=== PATIENT | male | born 1965 | race Caucasian/White ===

== ENCOUNTER 2018-05-24 14:50 | Emergency (ER) | payer BC, MEDICAID, OTHER ==
[~2018-05-24] VITALS: Ht 172.7 cm; Wt 109.5 kg
[~2018-05-24 14:50] MED LIST: CLIN300C85 PO; FENO48TA15 PO; INSU100V36 SQ; LANTUS SQ; NO HOME MEDS
[2018-05-24 15:02] VITALS: BP 12/81
[2018-05-24] MEDS ORDERED: BENZ-16 PO (15:50)
[2018-05-24] MEDS ORDERED: AZIT250T PO (15:50)
== END 2018-05-24 16:02 | disposition home or self-care (01) ==
LOC: ER 14:50
DX: J20.9 Acute bronchitis, unspecified (principal); I25.2 Old myocardial infarction; E11.9 Type 2 diabetes mellitus without complications; G89.29 Other chronic pain; Z79.4 Long term (current) use of insulin
CPT/HCPCS: 82948; 99283

== ENCOUNTER 2021-08-10 10:24 | Inpatient (IN) | payer OTHER ==
[~2021-08-10] VITALS: Ht 175.3 cm; Wt 94.9 kg
[~2021-08-10 10:24] MED LIST changes: +CLIN-97 PO; -CLIN300C85 PO
[2021-08-10 11:00] LABS: BASOPHILS % (AUTO) 0.7 % (0-1); EOSINOPHILS % (AUTO) 0 % (0-6); HEMATOCRIT 45.4 % (42.0-52.0); HEMOGLOBIN 15.9 g/dl (14.0-17.9); LYMPHOCYTES # (AUTO) 0.4 X10'3 (1.1-4.8); LYMPHOCYTES % (AUTO) 5.7 % (21-51); MEAN CORPUSCULAR HEMOGLOBIN 29.3 PG (27.0-31.0); MEAN CORPUSCULAR VOLUME 83.7 FL (78-98); MEAN PLATELET VOLUME 7.9 FL (7.4-10.4); MONOCYTES # (AUTO) 0.4 X10'3 (0-0.9); MONOCYTES % (AUTO) 6.6 % (2-12); NEUTROPHILS # (AUTO) 5.7 X10'3 (1.8-7.7); PLATELET COUNT 261 X10'3 (140-440); RED BLOOD COUNT 5.43 X10'6 (4.70-6.10); RED CELL DISTRIBUTION WIDTH 14.1 % (11.5-14.5); WHITE BLOOD COUNT 6.5 X10'3 (4.5-11.0)
[2021-08-10] MEDS ORDERED: normal saline 1000ml 1,000 ML IV ONE (11:05)
[2021-08-10] MEDS ORDERED: acetaminophen 325mg tablet PO ONE (11:05)
[2021-08-10 11:11] LABS: D-DIMER 0.88 MG/L FEU (0-0.50)
[2021-08-10 11:14] LABS: ALANINE AMINOTRANSFERASE 19 U/L (12-78); ALBUMIN 2.6 G/DL (3.4-5.0); ALBUMIN/GLOBULIN RATIO 0.5 (1.1-1.5); ALKALINE PHOSPHATASE 70 IU/L (46-116); ANION GAP 16 (8-16); ASPARTATE AMINO TRANSFERASE 30 U/L (10-37); BILIRUBIN,TOTAL 1.1 MG/DL (0.1-1.0); BLOOD UREA NITROGEN 17 MG/DL (7-18); BUN/CREATININE RATIO 14.7 (5.4-32.0); CALCIUM 8.6 MG/DL (8.5-10.1); CHLORIDE 95 MMOL/L (99-107); CREATININE 1.16 MG/DL (0.60-1.10); GLUCOSE 273 MG/DL (70-104); SODIUM 132 MMOL/L (135-145); TOTAL CARBON DIOXIDE 21.4 MMOL/L (24-32); TOTAL PROTEIN 7.4 G/DL (6.4-8.2); eGFR 65 ML/MIN
--- NOTE | 2021-08-10 11:59 | NUR ---
spoke with hospitalist brian regarding pt staying on 15l nonrebreather vs initiating hi flow nasal cannula or an abg. brian states he will defer to respiratory therapy to decide what is best and will put in orders accordingly
[2021-08-10 12:15] LABS: C-REACTIVE PROTEIN 21.39 MG/DL (0.0-0.5)
[2021-08-10] MEDS ORDERED: HYDROcodone/acetaminophen 10/325mg tab PO PRN (12:20)
[2021-08-10] MEDS ORDERED: PERFLUTREN PROTEIN-A MICROSPHR (Optison) 0.22 MG/ML 3ML VIAL IV ONE (12:20)
[2021-08-10] MEDS ORDERED: magnesium 4gm in 100ml NS 100 ML IV PRN (12:20)
[2021-08-10] MEDS ORDERED: HYDROcodone/acetaminophen 5mg/325mg tablet PO PRN (12:20)
[2021-08-10] MEDS ORDERED: mag hydrox/Alum hydrox/simeth 30ml oral suspension PO PRN (12:20)
[2021-08-10] MEDS ORDERED: potassium CL 10mEq/100ml bag 100 ML IV PRN (12:20)
[2021-08-10] MEDS ORDERED: furosemide 40mg/4ml inj IV ONE (12:20)
[2021-08-10] MEDS ORDERED: dextrose ORAL solution 15 GM/59 ML bottle PO PRN ×2 (12:20)
[2021-08-10] MEDS ORDERED: ondansetron/PF 4mg/2ml inj IV PRN (12:20)
[2021-08-10] MEDS ORDERED: dextrose 50%-water 50ml dispensing syringe IV PRN ×2 (12:20)
[2021-08-10] MEDS ORDERED: magnesium 2GM in 50ml NS 50 ML IV PRN (12:20)
[2021-08-10] MEDS ORDERED: magnesium hydroxide 30ml (MOM) UD suspension PO PRN (12:20)
[2021-08-10] MEDS ORDERED: potassium Cl 20 mEq SR tablet PO PRN ×2 (12:20)
[2021-08-10] MEDS ORDERED: MESSAGE TO PHARMACY PO ONE (12:20)
[2021-08-10] MEDS ORDERED: glucagon, human recombinant 1mg kit SUBCUT PRN (12:20)
[2021-08-10] MEDS ORDERED: dexamethasone inj 6 MG in dextrose 5%-water 100 ML IV ONE (12:30)
[2021-08-10] MEDS ORDERED: ondansetron/PF 4mg/2ml inj IV ONE (12:30)
[2021-08-10] MEDS ORDERED: ALBUTEROL INHALER 1 PUFF/90 MCG INHALER IH PRN (13:15)
[2021-08-10 13:19] LABS: HEMOGLOBIN A1C 10.8 % (4.5-6.2)
[2021-08-10] MEDS: insulin Lispro (HumaLOG) vial - multi-dose SQ SCH ×3 (15:05→22:06)
[2021-08-10 15:30] VITALS: BP 124/84
[2021-08-10 18:00] VITALS: BP 158/95
--- NOTE | 2021-08-10 18:30 | NUR ---
Problems reprioritized. Patient report given, questions answered & plan of care reviewed with Rohit OROURKE.
[2021-08-10] MEDS: furosemide 10 MG/1 ML 10ml inj IV SCH (19:24)
[2021-08-10] MEDS: docusate sod 100mg capsule PO SCH (19:25)
[2021-08-10] MEDS: dexamethasone inj 6 MG in dextrose 5%-water 100 ML IV SCH (19:25)
[2021-08-10] MEDS ORDERED: enoxaparin 40mg/0.4ml syringe SQ SCH (20:00)
[2021-08-10] MEDS: K and/or MAG REPLACEMENT MC SCH (20:00)
[2021-08-10 22:00] VITALS: BP 140/85
[2021-08-10] MEDS: insulin glargine (Lantus) pen - multi-dose SQ SCH (22:09)
[2021-08-11 02:00] VITALS: BP 114/67
[2021-08-11 06:00] VITALS: BP 116/72
--- NOTE | 2021-08-11 06:45 | NUR ---
Patient in room ORTHO 4023. I have received report from REVA RN and had the opportunity to ask questions and assume patient care.
[2021-08-11 07:17] LABS: BASOPHILS % (AUTO) 0 % (0-1); EOSINOPHILS % (AUTO) 0 % (0-6); HEMATOCRIT 43.8 % (42.0-52.0); HEMOGLOBIN 15.4 g/dl (14.0-17.9); LYMPHOCYTES # (AUTO) 0.2 X10'3 (1.1-4.8); LYMPHOCYTES % (AUTO) 3.8 % (21-51); MEAN CORPUSCULAR HEMOGLOBIN 29.2 PG (27.0-31.0); MEAN CORPUSCULAR HGB CONC 35.2 g/dL (33.0-36.5); MEAN CORPUSCULAR VOLUME 82.9 FL (78-98); MEAN PLATELET VOLUME 8.3 FL (7.4-10.4); MONOCYTES # (AUTO) 0.2 X10'3 (0-0.9); MONOCYTES % (AUTO) 4.1 % (2-12); NEUTROPHILS # (AUTO) 4.2 X10'3 (1.8-7.7); NEUTROPHILS % (AUTO) 92.1 % (42-75); PLATELET COUNT 299 X10'3 (140-440); RED BLOOD COUNT 5.28 X10'6 (4.70-6.10); RED CELL DISTRIBUTION WIDTH 13.7 % (11.5-14.5); WHITE BLOOD COUNT 4.6 X10'3 (4.5-11.0)
[2021-08-11 07:18] LABS: D-DIMER 0.64 MG/L FEU (0-0.50)
[2021-08-11] MEDS: dexamethasone inj 6 MG in dextrose 5%-water 100 ML IV SCH ×2 (07:24→20:51)
[2021-08-11] MEDS: aspirin 81mg, enteric-coated 1 TAB TABLET.DR PO SCH (07:25)
[2021-08-11] MEDS: docusate sod 100mg capsule PO SCH ×2 (07:25→20:00)
[2021-08-11] MEDS: furosemide 10 MG/1 ML 10ml inj IV SCH (07:26)
[2021-08-11 07:49] LABS: ALANINE AMINOTRANSFERASE 24 U/L (12-78); ALBUMIN 2.5 G/DL (3.4-5.0); ALBUMIN/GLOBULIN RATIO 0.6 (1.1-1.5); ALKALINE PHOSPHATASE 72 IU/L (46-116); ANION GAP 13 (8-16); ASPARTATE AMINO TRANSFERASE 26 U/L (10-37); BILIRUBIN,TOTAL 0.8 MG/DL (0.1-1.0); BLOOD UREA NITROGEN 26 MG/DL (7-18); BUN/CREATININE RATIO 27.7 (5.4-32.0); C-REACTIVE PROTEIN 16.27 MG/DL (0.0-0.5); CALCIUM 8.3 MG/DL (8.5-10.1); CHLORIDE 99 MMOL/L (99-107); CHOL/HDL RATIO 7.3 (0.00-4.99); CHOLESTEROL 257 MG/DL (0-200); CREATININE 0.94 MG/DL (0.60-1.10); GLUCOSE 340 MG/DL (70-104); HDL CHOLESTEROL 35 MG/DL (35-60); LDL CHOLESTEROL 162 MG/DL (50-100); MAGNESIUM 2.2 MG/DL (1.5-2.4); POTASSIUM 4.2 MMOL/L (3.5-5.1); SODIUM 135 MMOL/L (135-145); TOTAL CARBON DIOXIDE 22.8 MMOL/L (24-32); TOTAL PROTEIN 6.6 G/DL (6.4-8.2); TRIGLYCERIDES 204 MG/DL (20-135); eGFR 83 ML/MIN
[2021-08-11] MEDS ORDERED: clopidogrel 75mg tablet PO SCH (08:00)
[2021-08-11] MEDS: K and/or MAG REPLACEMENT MC SCH ×2 (08:00→20:00)
[2021-08-11] MEDS: insulin Lispro (HumaLOG) vial - multi-dose SQ SCH ×3 (09:30→18:33)
[2021-08-11 11:00] VITALS: BP 111/72
--- NOTE | 2021-08-11 14:15 | NUR ---
DM Consult: Pt admit DX COVID-19 hx insulin-dependent DM A1C 10.8% stopped taking all medications for several months [employer] per EMR. Pt currently on 13L HFNC per EMR. Would benefit from DM education this admit once more appropriate prior to discharge. Addendum: 08/11/21 at [address] Amended: Links added.
[2021-08-11 15:00] VITALS: BP 111/70
[2021-08-11 18:00] VITALS: BP 103/64
--- NOTE | 2021-08-11 18:31 | NUR ---
Problems reprioritized. Patient report given, questions answered & plan of care reviewed with Patrica OROURKE.
[2021-08-11] MEDS: loperamide 2mg capsule PO PRN (18:35)
[2021-08-11] MEDS: insulin glargine (Lantus) pen - multi-dose SQ SCH (20:51)
[2021-08-11] MEDS: enoxaparin 40mg/0.4ml syringe SQ SCH (20:52)
[2021-08-11 22:00] VITALS: BP 118/76
[2021-08-12 02:00] VITALS: BP 113/70
--- NOTE | 2021-08-12 06:30 | NUR ---
Patient in room ORTHO 4023. I have received report from Patrica OROURKE and had the opportunity to ask questions and assume patient care.
[2021-08-12 06:31] VITALS: BP 105/63
[2021-08-12] MEDS: dexamethasone inj 6 MG in dextrose 5%-water 100 ML IV SCH ×2 (07:23→20:54)
[2021-08-12] MEDS: acetaminophen 325mg tablet PO PRN ×2 (07:42→20:54)
[2021-08-12] MEDS: aspirin 81mg, enteric-coated 1 TAB TABLET.DR PO SCH (07:42)
[2021-08-12 07:43] LABS: BASOPHILS % (AUTO) 0.3 % (0-1); EOSINOPHILS % (AUTO) 0 % (0-6); HEMATOCRIT 44.6 % (42.0-52.0); HEMOGLOBIN 15.5 g/dl (14.0-17.9); LYMPHOCYTES # (AUTO) 0.2 X10'3 (1.1-4.8); LYMPHOCYTES % (AUTO) 3.1 % (21-51); MEAN CORPUSCULAR HEMOGLOBIN 28.8 PG (27.0-31.0); MEAN CORPUSCULAR HGB CONC 34.8 g/dL (33.0-36.5); MEAN CORPUSCULAR VOLUME 82.9 FL (78-98); MEAN PLATELET VOLUME 8.2 FL (7.4-10.4); MONOCYTES # (AUTO) 0.3 X10'3 (0-0.9); MONOCYTES % (AUTO) 5.3 % (2-12); NEUTROPHILS % (AUTO) 91.3 % (42-75); PLATELET COUNT 369 X10'3 (140-440); RED BLOOD COUNT 5.37 X10'6 (4.70-6.10); RED CELL DISTRIBUTION WIDTH 13.9 % (11.5-14.5); WHITE BLOOD COUNT 6.6 X10'3 (4.5-11.0)
[2021-08-12] MEDS: enoxaparin 40mg/0.4ml syringe SQ SCH ×2 (07:43→20:54)
[2021-08-12 07:59] LABS: ALANINE AMINOTRANSFERASE 23 U/L (12-78); ALBUMIN 2.5 G/DL (3.4-5.0); ALBUMIN/GLOBULIN RATIO 0.6 (1.1-1.5); ALKALINE PHOSPHATASE 67 IU/L (46-116); ANION GAP 12 (8-16); ASPARTATE AMINO TRANSFERASE 23 U/L (10-37); BILIRUBIN,TOTAL 0.9 MG/DL (0.1-1.0); BLOOD UREA NITROGEN 30 MG/DL (7-18); BUN/CREATININE RATIO 30.9 (5.4-32.0); CALCIUM 8.5 MG/DL (8.5-10.1); CHLORIDE 99 MMOL/L (99-107); CREATININE 0.97 MG/DL (0.60-1.10); GLUCOSE 281 MG/DL (70-104); MAGNESIUM 2.4 MG/DL (1.5-2.4); POTASSIUM 4.2 MMOL/L (3.5-5.1); SODIUM 136 MMOL/L (135-145); TOTAL CARBON DIOXIDE 24.6 MMOL/L (24-32); TOTAL PROTEIN 6.5 G/DL (6.4-8.2); eGFR 80 ML/MIN
[2021-08-12] MEDS ORDERED: furosemide 10 MG/1 ML 10ml inj IV SCH (08:00)
[2021-08-12] MEDS: furosemide 20 MG/2 ML vial IV SCH (08:00)
[2021-08-12] MEDS: K and/or MAG REPLACEMENT MC SCH ×2 (08:00→20:00)
[2021-08-12] MEDS: docusate sod 100mg capsule PO SCH ×2 (08:00→20:00)
[2021-08-12] MEDS: insulin Lispro (HumaLOG) vial - multi-dose SQ SCH ×3 (09:07→18:36)
[2021-08-12] MEDS: loperamide 2mg capsule PO PRN (09:13)
[2021-08-12 09:16] LABS: D-DIMER 1.36 MG/L FEU (0-0.50)
--- NOTE | 2021-08-12 09:23 | NUR ---
Replaced nonrebreather.
[2021-08-12] MEDS ORDERED: CefTRIAXone 2gm/D5W 50ml BAG 50 ML IV SCH (09:40)
--- NOTE | 2021-08-12 10:16 | NUR ---
Working with PT attempting to prone.
[2021-08-12 10:32] VITALS: BP 98/62
--- NOTE | 2021-08-12 10:55 | NUR ---
Patient proned x15 minutes, helped into right lateral position.
--- NOTE | 2021-08-12 12:50 | NUR ---
Patient ripped off nasal cannula and nonrebreather and was in the 60s sp02. Telemetry called to let me know, upon walking into room found patient agitated and would not put oxygen back on. States he would rather go home and than here alone as his is getting discharged and is in the hospital bed next to him. is visably distraught. Dr. Hernandez came to bedside to examine patient and gave risks of going home and strongly advised that he stay. Xanax orders were given however patient refuses at this time. He is being very negative in his thinking and quickly believes that he is going to either way regardless of medical intervention. Reassurance given to him, patient is willing to stay at this point. Sitting on side of bed eating lunch. He and his are in disagreement with each other which i believe is causing a lot of these problems.
--- NOTE | 2021-08-12 13:52 | NUR ---
Patient wearing 02 and is willing to be compliant and present in care at this time.
[2021-08-12] MEDS ORDERED: TOCILIZUMAB 80MG/4 ML INJ. 800 MG in normal saline 100ml IV soln 60 ML IV ONE (14:00)
[2021-08-12 18:00] VITALS: BP 109/70
--- NOTE | 2021-08-12 18:18 | NUR ---
Report given to Patrica OROURKE
[2021-08-12] MEDS: insulin glargine (Lantus) pen - multi-dose SQ SCH (20:53)
[2021-08-12 22:00] VITALS: BP 93/55
[2021-08-13 02:00] VITALS: BP 100/69
--- NOTE | 2021-08-13 06:20 | NUR ---
Patient in room ORTHO 4023b. I have received report from Patrica OROURKE and had the opportunity to ask questions and assume patient care.
[2021-08-13 06:57] VITALS: BP 121/72
[2021-08-13 06:58] LABS: D-DIMER 1.59 MG/L FEU (0-0.50)
[2021-08-13 07:03] LABS: BASOPHILS % (AUTO) 0.2 % (0-1); EOSINOPHILS % (AUTO) 0 % (0-6); HEMATOCRIT 44.1 % (42.0-52.0); HEMOGLOBIN 15.4 g/dl (14.0-17.9); LYMPHOCYTES # (AUTO) 0.1 X10'3 (1.1-4.8); LYMPHOCYTES % (AUTO) 3.5 % (21-51); MEAN CORPUSCULAR VOLUME 82.9 FL (78-98); MEAN PLATELET VOLUME 7.8 FL (7.4-10.4); MONOCYTES # (AUTO) 0.3 X10'3 (0-0.9); MONOCYTES % (AUTO) 7.9 % (2-12); NEUTROPHILS # (AUTO) 3.2 X10'3 (1.8-7.7); NEUTROPHILS % (AUTO) 88.4 % (42-75); PLATELET COUNT 343 X10'3 (140-440); RED BLOOD COUNT 5.32 X10'6 (4.70-6.10); RED CELL DISTRIBUTION WIDTH 13.7 % (11.5-14.5); WHITE BLOOD COUNT 3.6 X10'3 (4.5-11.0)
[2021-08-13 07:15] LABS: ALANINE AMINOTRANSFERASE 19 U/L (12-78); ALBUMIN 2.5 G/DL (3.4-5.0); ALBUMIN/GLOBULIN RATIO 0.7 (1.1-1.5); ALKALINE PHOSPHATASE 65 IU/L (46-116); ANION GAP 10 (8-16); ASPARTATE AMINO TRANSFERASE 19 U/L (10-37); BILIRUBIN,TOTAL 0.7 MG/DL (0.1-1.0); BLOOD UREA NITROGEN 31 MG/DL (7-18); BUN/CREATININE RATIO 34.1 (5.4-32.0); C-REACTIVE PROTEIN 2.45 MG/DL (0.0-0.5); CALCIUM 8.4 MG/DL (8.5-10.1); CHLORIDE 101 MMOL/L (99-107); CREATININE 0.91 MG/DL (0.60-1.10); GLUCOSE 241 MG/DL (70-104); MAGNESIUM 2.4 MG/DL (1.5-2.4); POTASSIUM 4.4 MMOL/L (3.5-5.1); SODIUM 137 MMOL/L (135-145); TOTAL CARBON DIOXIDE 26.3 MMOL/L (24-32); TOTAL PROTEIN 6.1 G/DL (6.4-8.2); eGFR 86 ML/MIN
[2021-08-13] MEDS: K and/or MAG REPLACEMENT MC SCH ×2 (08:00→19:30)
[2021-08-13] MEDS: aspirin 81mg, enteric-coated 1 TAB TABLET.DR PO SCH (10:11)
[2021-08-13] MEDS: furosemide 20 MG/2 ML vial IV SCH (10:12)
[2021-08-13] MEDS: enoxaparin 40mg/0.4ml syringe SQ SCH ×2 (10:12→19:30)
[2021-08-13] MEDS: docusate sod 100mg capsule PO SCH ×2 (10:12→19:31)
[2021-08-13] MEDS: dexamethasone inj 6 MG in dextrose 5%-water 100 ML IV SCH ×2 (10:22→19:30)
[2021-08-13] MEDS: insulin Lispro (HumaLOG) vial - multi-dose SQ SCH ×2 (13:43→19:16)
--- NOTE | 2021-08-13 17:51 | NUR ---
PATIENT LAID ON BOTH SIDES AND SAT IN THE TRIPOD POSITION FOR A FEW HOURS TO RELIEVE PRESSURE SINCE HE IS UNABLE TO PRONE.
--- NOTE | 2021-08-13 17:54 | NUR ---
PATIENT STATED HE DID THIS FREQUENTLY THROUGHOUT THE DAY. Addendum: 08/13/21 at 3754 by Jen Casper RN Amended: Links added.
[2021-08-13 18:00] VITALS: BP 106/72
--- NOTE | 2021-08-13 18:30 | NUR ---
Problems reprioritized. Patient report given, questions answered & plan of care reviewed with MARVA OROURKE.
[2021-08-13] MEDS: acetaminophen 325mg tablet PO PRN (19:31)
[2021-08-13 20:17] LABS: ABG BASE EXCESS 3.7 mmol/L (-2.0-2.0); ABG HCO3 27.2 mmol/L (22.0-26.0); ABG OXYGEN SATURATION 88.4 % (94-97); ABG PCO2 (T) 36.7 mmHg (35.0-48.0); ABG PO2 (T) 50.4 mmHg (75.0-100.0); ALLEN'S TEST POSITIVE; FCOHb 0.2 % (0.0-3.9); FMetHb 0.2 % (0.0-1.5); PATIENT TEMPERATURE 36.5
--- NOTE | 2021-08-13 21:10 | NUR ---
ABG results called to Dr. Ndiaye. Critical PaO2 50.4. Dr. Ndiaye ordered for patient to be placed on CPAP but patient refused to wear one. Educated on importance of wearing one.
[2021-08-13] MEDS: insulin glargine (Lantus) pen - multi-dose SQ SCH (21:17)
[2021-08-13 22:00] VITALS: BP 105/71
[2021-08-14 02:00] VITALS: BP 108/62
[2021-08-14 06:00] VITALS: BP 120/67
--- NOTE | 2021-08-14 06:42 | NUR ---
Problems reprioritized. Patient report given, questions answered & plan of care reviewed with Mita OROURKE.
--- NOTE | 2021-08-14 06:42 | NUR ---
Patient in room ORTHO 4023. I have received report from Bhavna OROURKE and had the opportunity to ask questions and assume patient care.
[2021-08-14 07:58] LABS: BASOPHILS % (AUTO) 0.4 % (0-1); EOSINOPHILS % (AUTO) 0.1 % (0-6); HEMATOCRIT 44.3 % (42.0-52.0); HEMOGLOBIN 15.5 g/dl (14.0-17.9); LYMPHOCYTES # (AUTO) 0.2 X10'3 (1.1-4.8); LYMPHOCYTES % (AUTO) 6.9 % (21-51); MEAN CORPUSCULAR HGB CONC 35.1 g/dL (33.0-36.5); MEAN CORPUSCULAR VOLUME 82.8 FL (78-98); MEAN PLATELET VOLUME 7.7 FL (7.4-10.4); MONOCYTES # (AUTO) 0.2 X10'3 (0-0.9); MONOCYTES % (AUTO) 8.4 % (2-12); NEUTROPHILS # (AUTO) 2.1 X10'3 (1.8-7.7); NEUTROPHILS % (AUTO) 84.2 % (42-75); PLATELET COUNT 364 X10'3 (140-440); RED BLOOD COUNT 5.34 X10'6 (4.70-6.10); RED CELL DISTRIBUTION WIDTH 13.6 % (11.5-14.5); WHITE BLOOD COUNT 2.5 X10'3 (4.5-11.0)
[2021-08-14] MEDS: docusate sod 100mg capsule PO SCH ×3 (08:00→19:13)
[2021-08-14] MEDS: K and/or MAG REPLACEMENT MC SCH ×2 (08:00→19:13)
[2021-08-14] MEDS: furosemide 20 MG/2 ML vial IV SCH (08:06)
[2021-08-14] MEDS: dexamethasone inj 6 MG in dextrose 5%-water 100 ML IV SCH ×2 (08:06→19:12)
[2021-08-14] MEDS: enoxaparin 40mg/0.4ml syringe SQ SCH ×2 (08:06→19:13)
[2021-08-14] MEDS: aspirin 81mg, enteric-coated 1 TAB TABLET.DR PO SCH (08:06)
--- NOTE | 2021-08-14 09:08 | NUR ---
Initial: Pt admitted w/ acute respiratory failure secondary to Covid per EMR, currently on 15L HF oxygen, refusing BiPAP per documentation. Pt noted to be depressed and agitated at times. Currently on Heart healthy/Carb controlled diet w/ moderate PO intake, avg 56% x 10 meals which meets approximately 51% of est energy needs and 56% of est protein needs. Pt can benefit from Ensure Enlive TID to assist w/ meeting nutrient needs. LBM 08/11 receiving routine colace. Will continue to monitor. Recs: 1. Continue CCHO diet as tolerated; removal of heart healthy if MD agreeable 2. Ensure Enlive TID; pending MD verification 3. Bowel care per rx 4. Scaled wt this admit, subsequent weekly wt 5. DM education by NELY once pt more appropriate this admit Addendum: 08/14/21 at [address] Amended: Links added.
[2021-08-14] MEDS: acetaminophen 325mg tablet PO PRN ×2 (09:36→19:12)
[2021-08-14 09:40] LABS: D-DIMER 1.81 MG/L FEU (0-0.50)
[2021-08-14 09:42] LABS: TOTAL CELLS COUNTED 100
[2021-08-14 09:43] LABS: PLATELET ESTIMATE NORMAL
[2021-08-14] MEDS: insulin Lispro (HumaLOG) vial - multi-dose SQ SCH ×3 (09:54→18:45)
[2021-08-14 10:12] VITALS: BP 109/70
[2021-08-14 10:27] LABS: ALANINE AMINOTRANSFERASE 20 U/L (12-78); ALBUMIN 2.7 G/DL (3.4-5.0); ALBUMIN/GLOBULIN RATIO 0.8 (1.1-1.5); ALKALINE PHOSPHATASE 64 IU/L (46-116); ANION GAP 11 (8-16); ASPARTATE AMINO TRANSFERASE 21 U/L (10-37); BILIRUBIN,TOTAL 0.8 MG/DL (0.1-1.0); BLOOD UREA NITROGEN 24 MG/DL (7-18); BUN/CREATININE RATIO 27.6 (5.4-32.0); C-REACTIVE PROTEIN 1.16 MG/DL (0.0-0.5); CALCIUM 8.4 MG/DL (8.5-10.1); CHLORIDE 99 MMOL/L (99-107); CREATININE 0.87 MG/DL (0.60-1.10); GLUCOSE 176 MG/DL (70-104); MAGNESIUM 2.5 MG/DL (1.5-2.4); SODIUM 137 MMOL/L (135-145); TOTAL CARBON DIOXIDE 27.5 MMOL/L (24-32); eGFR 90 ML/MIN
[2021-08-14 12:47] LABS: POTASSIUM 4.8 MMOL/L (3.5-5.1)
[2021-08-14] MEDS: lactose-reduced food (Ensure Enlive) - 237ml bottle PO SCH ×2 (13:00→18:00)
[2021-08-14 14:00] VITALS: BP 93/55
--- NOTE | 2021-08-14 15:19 | NUR ---
DM Consult: Pt would benefit from DM ed once more appropriate; see prior RD note. Addendum: 08/14/21 at [address] Amended: Links added.
[2021-08-14 18:00] VITALS: BP 100/70
--- NOTE | 2021-08-14 18:24 | NUR ---
Patient in room ORTHO 4023. I have received report from Mita OROURKE and had the opportunity to ask questions and assume patient care.
[2021-08-14] MEDS: insulin glargine (Lantus) pen - multi-dose SQ SCH (21:13)
[2021-08-14 22:00] VITALS: BP 99/66
[2021-08-15] VITALS (7 sets, daily range): BP systolic 87–110; BP diastolic 51–70
[2021-08-15] MEDS: acetaminophen 325mg tablet PO PRN ×2 (04:21→19:23)
--- NOTE | 2021-08-15 06:20 | NUR ---
Problems reprioritized. Patient report given, questions answered & plan of care reviewed with Mita OROURKE.
--- NOTE | 2021-08-15 06:36 | NUR ---
Patient in room ORTHO 4023. I have received report from Bhavna OROURKE and had the opportunity to ask questions and assume patient care.
[2021-08-15] MEDS: dexamethasone inj 6 MG in dextrose 5%-water 100 ML IV SCH ×2 (07:41→19:23)
[2021-08-15] MEDS: lactose-reduced food (Ensure Enlive) - 237ml bottle PO SCH ×3 (07:42→17:34)
[2021-08-15] MEDS: enoxaparin 40mg/0.4ml syringe SQ SCH ×2 (07:42→19:24)
[2021-08-15] MEDS: aspirin 81mg, enteric-coated 1 TAB TABLET.DR PO SCH (07:42)
[2021-08-15] MEDS: docusate sod 100mg capsule PO SCH ×2 (07:42→19:24)
[2021-08-15] MEDS: furosemide 20 MG/2 ML vial IV SCH (07:42)
[2021-08-15] MEDS: K and/or MAG REPLACEMENT MC SCH ×2 (07:43→19:17)
[2021-08-15 08:53] LABS: BASOPHILS % (AUTO) 0 % (0-1); EOSINOPHILS % (AUTO) 0.3 % (0-6); HEMATOCRIT 44.7 % (42.0-52.0); HEMOGLOBIN 15.4 g/dl (14.0-17.9); LYMPHOCYTES # (AUTO) 0.2 X10'3 (1.1-4.8); LYMPHOCYTES % (AUTO) 7.3 % (21-51); MEAN CORPUSCULAR HEMOGLOBIN 28.8 PG (27.0-31.0); MEAN CORPUSCULAR HGB CONC 34.5 g/dL (33.0-36.5); MEAN CORPUSCULAR VOLUME 83.4 FL (78-98); MEAN PLATELET VOLUME 7.6 FL (7.4-10.4); MONOCYTES # (AUTO) 0.1 X10'3 (0-0.9); MONOCYTES % (AUTO) 6.8 % (2-12); NEUTROPHILS # (AUTO) 1.8 X10'3 (1.8-7.7); NEUTROPHILS % (AUTO) 85.6 % (42-75); PLATELET COUNT 365 X10'3 (140-440); RED BLOOD COUNT 5.36 X10'6 (4.70-6.10); RED CELL DISTRIBUTION WIDTH 13.7 % (11.5-14.5); WHITE BLOOD COUNT 2.1 X10'3 (4.5-11.0)
[2021-08-15 09:06] LABS: D-DIMER 2.01 MG/L FEU (0-0.50)
[2021-08-15] MEDS: insulin Lispro (HumaLOG) vial - multi-dose SQ SCH ×3 (09:15→18:43)
[2021-08-15 10:36] LABS: TOTAL CELLS COUNTED 100
[2021-08-15 10:37] LABS: PLATELET ESTIMATE NORMAL
[2021-08-15 10:48] LABS: ALANINE AMINOTRANSFERASE 22 U/L (12-78); ALBUMIN 2.7 G/DL (3.4-5.0); ALBUMIN/GLOBULIN RATIO 0.9 (1.1-1.5); ALKALINE PHOSPHATASE 57 IU/L (46-116); ANION GAP 12 (8-16); ASPARTATE AMINO TRANSFERASE 28 U/L (10-37); BILIRUBIN,TOTAL 0.9 MG/DL (0.1-1.0); BLOOD UREA NITROGEN 23 MG/DL (7-18); BUN/CREATININE RATIO 25.6 (5.4-32.0); C-REACTIVE PROTEIN 0.53 MG/DL (0.0-0.5); CALCIUM 8.2 MG/DL (8.5-10.1); CHLORIDE 97 MMOL/L (99-107); GLUCOSE 238 MG/DL (70-104); MAGNESIUM 2.3 MG/DL (1.5-2.4); POTASSIUM 4.3 MMOL/L (3.5-5.1); SODIUM 134 MMOL/L (135-145); TOTAL CARBON DIOXIDE 25.2 MMOL/L (24-32); TOTAL PROTEIN 5.7 G/DL (6.4-8.2); eGFR 87 ML/MIN
--- NOTE | 2021-08-15 18:10 | NUR ---
Patient in room ORTHO 4023. I have received report from SHARAD Fan and had the opportunity to ask questions and assume patient care.
--- NOTE | 2021-08-15 18:29 | NUR ---
Problems reprioritized. Patient report given, questions answered & plan of care reviewed with Pao OROURKE.
[2021-08-15] MEDS: insulin glargine (Lantus) pen - multi-dose SQ SCH (20:54)
[2021-08-16 02:00] VITALS: BP 106/56
[2021-08-16] MEDS: acetaminophen 325mg tablet PO PRN ×2 (04:31→19:50)
[2021-08-16 05:00] VITALS: BP 100/59
[2021-08-16 06:00] LABS: C-REACTIVE PROTEIN 0.26 MG/DL (0.0-0.5)
--- NOTE | 2021-08-16 06:39 | NUR ---
Problems reprioritized. Patient report given, questions answered & plan of care reviewed with SHARAD Wang.
[2021-08-16] MEDS: K and/or MAG REPLACEMENT MC SCH ×2 (08:00→18:58)
[2021-08-16] MEDS: dexamethasone inj 6 MG in dextrose 5%-water 100 ML IV SCH ×2 (08:44→19:50)
[2021-08-16] MEDS: docusate sod 100mg capsule PO SCH ×2 (08:45→19:50)
[2021-08-16] MEDS: furosemide 20 MG/2 ML vial IV SCH (08:45)
[2021-08-16] MEDS: aspirin 81mg, enteric-coated 1 TAB TABLET.DR PO SCH (08:46)
[2021-08-16] MEDS: enoxaparin 40mg/0.4ml syringe SQ SCH ×2 (08:46→19:50)
[2021-08-16] MEDS: lactose-reduced food (Ensure Enlive) - 237ml bottle PO SCH ×3 (08:48→18:19)
[2021-08-16 08:51] LABS: HIV ANTIBODY 1&2 RAPID NON-REACTIVE (Neg)
[2021-08-16] MEDS: insulin Lispro (HumaLOG) vial - multi-dose SQ SCH ×3 (09:20→18:32)
[2021-08-16 09:33] LABS: ALANINE AMINOTRANSFERASE 25 U/L (12-78); ALBUMIN 2.7 G/DL (3.4-5.0); ALBUMIN/GLOBULIN RATIO 0.9 (1.1-1.5); ALKALINE PHOSPHATASE 56 IU/L (46-116); ANION GAP 11 (8-16); ASPARTATE AMINO TRANSFERASE 23 U/L (10-37); BILIRUBIN,TOTAL 0.8 MG/DL (0.1-1.0); BLOOD UREA NITROGEN 25 MG/DL (7-18); BUN/CREATININE RATIO 30.9 (5.4-32.0); CALCIUM 8.7 MG/DL (8.5-10.1); CHLORIDE 100 MMOL/L (99-107); CREATININE 0.81 MG/DL (0.60-1.10); GLUCOSE 144 MG/DL (70-104); POTASSIUM 4.6 MMOL/L (3.5-5.1); SODIUM 137 MMOL/L (135-145); TOTAL CARBON DIOXIDE 25.8 MMOL/L (24-32); TOTAL PROTEIN 5.7 G/DL (6.4-8.2); eGFR > 90 ML/MIN
[2021-08-16 09:46] LABS: BASOPHILS % (AUTO) 0.2 % (0-1); EOSINOPHILS % (AUTO) 0.3 % (0-6); HEMATOCRIT 47.6 % (42.0-52.0); HEMOGLOBIN 16.6 g/dl (14.0-17.9); LYMPHOCYTES # (AUTO) 0.2 X10'3 (1.1-4.8); LYMPHOCYTES % (AUTO) 5.4 % (21-51); MEAN CORPUSCULAR HEMOGLOBIN 28.9 PG (27.0-31.0); MEAN CORPUSCULAR HGB CONC 34.9 g/dL (33.0-36.5); MEAN CORPUSCULAR VOLUME 82.9 FL (78-98); MEAN PLATELET VOLUME 7.4 FL (7.4-10.4); MONOCYTES # (AUTO) 0.3 X10'3 (0-0.9); MONOCYTES % (AUTO) 7.1 % (2-12); NEUTROPHILS # (AUTO) 3.6 X10'3 (1.8-7.7); PLATELET COUNT 444 X10'3 (140-440); RED BLOOD COUNT 5.74 X10'6 (4.70-6.10); RED CELL DISTRIBUTION WIDTH 13.6 % (11.5-14.5); WHITE BLOOD COUNT 4.1 X10'3 (4.5-11.0)
[2021-08-16 10:00] VITALS: BP 113/75
--- NOTE | 2021-08-16 11:33 | NUR ---
Paged Dr. Powell PAGER ID: [phone] MESSAGE: [id number] Rikki Bolivar Pt would like something for anxiety. Ativan? Thanks. SHARAD Wang Ortho/Neuro ext [phone]
[2021-08-16 14:00] VITALS: BP 98/56
[2021-08-16 18:00] VITALS: BP 94/49
--- NOTE | 2021-08-16 18:15 | NUR ---
Patient in room ORTHO 4023. I have received report from SHARAD Wang and had the opportunity to ask questions and assume patient care.
--- NOTE | 2021-08-16 18:16 | NUR ---
Problems reprioritized. Patient report given, questions answered & plan of care reviewed with SHARAD Cedeno.
[2021-08-16] MEDS: insulin glargine (Lantus) pen - multi-dose SQ SCH (20:59)
[2021-08-16 22:00] VITALS: BP 98/54
[2021-08-17 02:00] VITALS: BP 101/53
[2021-08-17 05:30] VITALS: BP 116/62
--- NOTE | 2021-08-17 06:40 | NUR ---
Patient in room ORTHO 4023. I have received report from SHARAD Cedeno and had the opportunity to ask questions and assume patient care.
--- NOTE | 2021-08-17 06:48 | NUR ---
Problems reprioritized. Patient report given, questions answered & plan of care reviewed with SHARAD Castillo.
[2021-08-17 07:44] LABS: D-DIMER 0.93 MG/L FEU (0-0.50)
[2021-08-17] MEDS: K and/or MAG REPLACEMENT MC SCH ×2 (08:00→20:00)
[2021-08-17] MEDS: docusate sod 100mg capsule PO SCH ×2 (08:00→19:55)
[2021-08-17] MEDS: lactose-reduced food (Ensure Enlive) - 237ml bottle PO SCH ×4 (08:48→18:00)
--- NOTE | 2021-08-17 09:06 | NUR ---
Reassessment: Pt PO has improved some on Heart healthy/Carb controlled diet w/ avg intake 85% x 9 meals in addition to 62% x 6 ONS which meets approximately 100% of est protein and energy needs. IF PO intake consistently greater than 85% of meals may consider d/c ONS and adding double protein to meals. Pt continues on 15L oxygen per documentation LBM 08/11 receiving routine colace, recommend additional bowel care given 6 days constipation. Will continue to monitor. Recs: 1. Continue CCHO diet as tolerated; removal of heart healthy if MD agreeable 2. Ensure Enlive TID 3. Bowel care per rx 4. Scaled wt this admit, subsequent weekly wt 5. DM education by RD once pt more appropriate this admit Addendum: 08/17/21 at [address] Amended: Links added.
[2021-08-17] MEDS: dexamethasone inj 6 MG in dextrose 5%-water 100 ML IV SCH ×2 (09:29→19:54)
[2021-08-17] MEDS: aspirin 81mg, enteric-coated 1 TAB TABLET.DR PO SCH (09:30)
[2021-08-17] MEDS: furosemide 20 MG/2 ML vial IV SCH (09:30)
[2021-08-17] MEDS: insulin Lispro (HumaLOG) vial - multi-dose SQ SCH ×3 (09:39→19:00)
[2021-08-17] MEDS: enoxaparin 40mg/0.4ml syringe SQ SCH ×2 (09:42→19:55)
[2021-08-17 10:00] VITALS: BP 103/70
--- NOTE | 2021-08-17 12:00 | NUR ---
Pt takes off 02 @ times. Tele monitor staff person has had to call several times to inform us of Sa02 less than 85%. Pt states, "He is okay & will put the 02 back on when he is ready to." Inst pt on the importance of keeping 02 on @ all times & the potential negative consequences of not wearing continuous 02/decreased Sa02. Pt verbalizes understanding.
[2021-08-17 14:00] VITALS: BP 96/57
[2021-08-17 18:00] VITALS: BP 97/70
--- NOTE | 2021-08-17 18:55 | NUR ---
Problems reprioritized. Patient report given, questions answered & plan of care reviewed with SHARAD Barksdale.
--- NOTE | 2021-08-17 19:11 | NUR ---
FOUND PT WITHOUT MASK O2 85% WITH NC. I ASKED PT TO PUT MASK BACK ON. HE KEPT SAYING IM OKAY. DON'T WORRY ABOUT ME. RESPIRATORY THERAPIST AND DOCTOR SAID ITS OK LONG HE HAS EITHER NC OR MASK, NOT BOTH. WE WERE TALKING O2 DROPPED 80%. I ASKED MULTIPLE TIMES TO PUT MASK WELL BUT PT KEPT SAYING IM OKAY. I PROMISE IM OKAY. AND REFUSED TO PUT MASK BACK ON.
[2021-08-17] MEDS: acetaminophen 325mg tablet PO PRN (19:55)
[2021-08-17] MEDS: insulin glargine (Lantus) pen - multi-dose SQ SCH (21:00)
[2021-08-17 22:00] VITALS: BP 103/61
--- NOTE | 2021-08-17 22:04 | NUR ---
PT REFUSED INSULIN AT DINNER TIME. BS 110. PT WAS NERVOUS ABOUT BS DROPPING WHICH HAPPENED LAST NIGHT. AGREED TO CHECK BS AT BEDTIME. HS BS WAS 138. PT REFUSED INSULIN AGAIN. PT STATES "I DON'T NEED IT" EDUCATED ABOUT RAPID ACTING AND LONG ACTING INSULIN. PT SAID "I KNOW I KNOW. I DON'T NEED IT" EDUCATED ABOUT HOW UNCONTROLLED BS AFFECT RECOVERY.
--- NOTE | 2021-08-18 06:33 | NUR ---
Problems reprioritized. Patient report given, questions answered & plan of care reviewed with SHARAD VEGA.
[2021-08-18 07:00] VITALS: BP 103/78
--- NOTE | 2021-08-18 07:01 | NUR ---
Patient in room ORTHO 4023. I have received report from SHARAD CELESTE and had the opportunity to ask questions and assume patient care.
[2021-08-18 07:11] LABS: D-DIMER 0.95 MG/L FEU (0-0.50)
[2021-08-18 07:14] LABS: HEMOGLOBIN 15.9 g/dl (14.0-17.9); LYMPHOCYTES # (AUTO) 0.2 X10'3 (1.1-4.8); MONOCYTES # (AUTO) 0.2 X10'3 (0-0.9)
[2021-08-18 07:16] LABS: BASOPHILS % (AUTO) 0.3 % (0-1); EOSINOPHILS % (AUTO) 0.4 % (0-6); LYMPHOCYTES % (AUTO) 4.9 % (21-51); MEAN CORPUSCULAR HEMOGLOBIN 28.8 PG (27.0-31.0); MEAN CORPUSCULAR HGB CONC 34.5 g/dL (33.0-36.5); MEAN CORPUSCULAR VOLUME 83.5 FL (78-98); MEAN PLATELET VOLUME 7.4 FL (7.4-10.4); MONOCYTES % (AUTO) 3.8 % (2-12); NEUTROPHILS # (AUTO) 3.8 X10'3 (1.8-7.7); NEUTROPHILS % (AUTO) 90.6 % (42-75); PLATELET COUNT 355 X10'3 (140-440); RED BLOOD COUNT 5.51 X10'6 (4.70-6.10); RED CELL DISTRIBUTION WIDTH 14.2 % (11.5-14.5); WHITE BLOOD COUNT 4.2 X10'3 (4.5-11.0)
[2021-08-18] MEDS: furosemide 20 MG/2 ML vial IV SCH (07:51)
[2021-08-18] MEDS: docusate sod 100mg capsule PO SCH ×3 (07:51→19:20)
[2021-08-18] MEDS: dexamethasone inj 6 MG in dextrose 5%-water 100 ML IV SCH (07:52)
[2021-08-18] MEDS: aspirin 81mg, enteric-coated 1 TAB TABLET.DR PO SCH (07:52)
[2021-08-18] MEDS: acetaminophen 325mg tablet PO PRN ×2 (07:52→20:54)
[2021-08-18] MEDS: enoxaparin 40mg/0.4ml syringe SQ SCH ×2 (07:53→19:03)
[2021-08-18 07:58] LABS: ALBUMIN 2.7 G/DL (3.4-5.0); ANION GAP 9 (8-16); BLOOD UREA NITROGEN 24 MG/DL (7-18); BUN/CREATININE RATIO 35.3 (5.4-32.0); C-REACTIVE PROTEIN 0.08 MG/DL (0.0-0.5); CALCIUM 8.2 MG/DL (8.5-10.1); CHLORIDE 99 MMOL/L (99-107); CREATININE 0.68 MG/DL (0.60-1.10); GLUCOSE 158 MG/DL (70-104); SODIUM 135 MMOL/L (135-145); TOTAL CARBON DIOXIDE 26.6 MMOL/L (24-32); eGFR > 90 ML/MIN
[2021-08-18] MEDS: K and/or MAG REPLACEMENT MC SCH ×2 (08:03→20:00)
[2021-08-18 08:31] LABS: PLATELET ESTIMATE NORMAL; TOTAL CELLS COUNTED 100
[2021-08-18] MEDS: insulin Lispro (HumaLOG) vial - multi-dose SQ SCH ×4 (11:24→20:58)
[2021-08-18 15:00] VITALS: BP 101/64
[2021-08-18 18:00] VITALS: BP 101/64
[2021-08-18] MEDS: dexamethasone inj 4 MG in dextrose 5%-water 100 ML IV SCH (19:03)
[2021-08-18] MEDS: insulin glargine (Lantus) pen - multi-dose SQ SCH (20:53)
[2021-08-18 22:00] VITALS: BP 96/62
[2021-08-19 02:00] VITALS: BP 110/71
[2021-08-19 06:00] VITALS: BP 97/57
--- NOTE | 2021-08-19 06:51 | NUR ---
Problems reprioritized. Patient report given, questions answered & plan of care reviewed with SHARAD PEREZ.
[2021-08-19 07:34] LABS: BASOPHILS % (AUTO) 0.2 % (0-1); EOSINOPHILS # (AUTO) 0.1 X10'3 (0-0.9); EOSINOPHILS % (AUTO) 1.6 % (0-6); HEMATOCRIT 46.8 % (42.0-52.0); HEMOGLOBIN 16.1 g/dl (14.0-17.9); LYMPHOCYTES # (AUTO) 0.2 X10'3 (1.1-4.8); MEAN CORPUSCULAR HEMOGLOBIN 28.9 PG (27.0-31.0); MEAN CORPUSCULAR HGB CONC 34.4 g/dL (33.0-36.5); MEAN CORPUSCULAR VOLUME 84.1 FL (78-98); MEAN PLATELET VOLUME 7.3 FL (7.4-10.4); MONOCYTES # (AUTO) 0.2 X10'3 (0-0.9); NEUTROPHILS # (AUTO) 3.4 X10'3 (1.8-7.7); NEUTROPHILS % (AUTO) 87.2 % (42-75); PLATELET COUNT 347 X10'3 (140-440); RED BLOOD COUNT 5.56 X10'6 (4.70-6.10); RED CELL DISTRIBUTION WIDTH 13.7 % (11.5-14.5); WHITE BLOOD COUNT 3.9 X10'3 (4.5-11.0)
[2021-08-19 07:43] LABS: D-DIMER 0.96 MG/L FEU (0-0.50)
[2021-08-19 08:20] LABS: ALBUMIN 2.7 G/DL (3.4-5.0); ANION GAP 8 (8-16); BLOOD UREA NITROGEN 26 MG/DL (7-18); BUN/CREATININE RATIO 39.4 (5.4-32.0); C-REACTIVE PROTEIN 0.05 MG/DL (0.0-0.5); CALCIUM 8.5 MG/DL (8.5-10.1); CHLORIDE 100 MMOL/L (99-107); CREATININE 0.66 MG/DL (0.60-1.10); GLUCOSE 124 MG/DL (70-104); POTASSIUM 4.8 MMOL/L (3.5-5.1); SODIUM 134 MMOL/L (135-145); TOTAL CARBON DIOXIDE 26.3 MMOL/L (24-32); eGFR > 90 ML/MIN
[2021-08-19] MEDS: furosemide 20 MG/2 ML vial IV SCH (08:54)
[2021-08-19] MEDS: dexamethasone inj 4 MG in dextrose 5%-water 100 ML IV SCH ×2 (08:54→20:38)
[2021-08-19] MEDS: aspirin 81mg, enteric-coated 1 TAB TABLET.DR PO SCH (08:54)
[2021-08-19] MEDS: docusate sod 100mg capsule PO SCH ×2 (08:55→20:49)
[2021-08-19] MEDS: enoxaparin 40mg/0.4ml syringe SQ SCH ×2 (08:55→20:38)
[2021-08-19] MEDS: K and/or MAG REPLACEMENT MC SCH ×2 (08:58→20:00)
[2021-08-19] MEDS: insulin Lispro (HumaLOG) vial - multi-dose SQ SCH ×3 (09:17→18:47)
[2021-08-19 10:00] VITALS: BP 116/69
--- NOTE | 2021-08-19 14:40 | NUR ---
F/u 08/19: RD attempted to contact pt via TC regarding written/verbal DM diet education however unsuccessful. Written DM diet ed w/ RD contact information mailed to pt home address provided in EMR. Addendum: 08/19/21 at [address] Amended: Links added.
[2021-08-19] MEDS: acetaminophen 325mg tablet PO PRN (15:31)
--- NOTE | 2021-08-19 15:51 | NUR ---
paged RT about patient 02 sats and maybe to put him on HF tower
[2021-08-19 18:22] VITALS: BP 85/57
--- NOTE | 2021-08-19 19:02 | NUR ---
PATIENT QUALIFIES FOR 22 UNITS OF INSULIN BASED ON 54 GRAMS OF CARBS AND A BLOOD SUGAR OF 149. PATIENT STATES THIS AMOUNT OF INSULIN IS TOO MUCH AND WE HAVE BEEN OVERDOSING HIM. EDUCATED PATIENT ON OUR PROTOCOL AND OFFERED TO CALL THE DOCTOR TO TREAT HIM AT A LOWER LEVEL ON THE PROTOCOL. PATIENT SAID HE JUST WANTS TO REFUSE THIS DOSE AND SEE WHAT HIS BLOOD SUGAR IS AT 2100.
--- NOTE | 2021-08-19 19:06 | NUR ---
Problems reprioritized. Patient report given, questions answered & plan of care reviewed with SHARAD Burciaga.
--- NOTE | 2021-08-19 20:31 | NUR ---
PATIENTS BLOOD SUGAR 158. HE AGAIN REFUSED HIS INSULIN STATING "I DONT NEED IT". PT IS FEARFUL OF HYPOGLYCEMIA. EDUCATION PROVIDED.
[2021-08-19] MEDS: insulin glargine (Lantus) pen - multi-dose SQ SCH (20:49)
[2021-08-19 22:00] VITALS: BP 94/62
[2021-08-20 02:00] VITALS: BP 109/61
[2021-08-20 06:00] VITALS: BP 90/55
[2021-08-20 07:59] LABS: BASOPHILS % (AUTO) 0.2 % (0-1); EOSINOPHILS # (AUTO) 0.1 X10'3 (0-0.9); EOSINOPHILS % (AUTO) 1.1 % (0-6); HEMATOCRIT 47.1 % (42.0-52.0); HEMOGLOBIN 15.9 g/dl (14.0-17.9); LYMPHOCYTES # (AUTO) 0.2 X10'3 (1.1-4.8); LYMPHOCYTES % (AUTO) 4.4 % (21-51); MEAN CORPUSCULAR HEMOGLOBIN 28.5 PG (27.0-31.0); MEAN CORPUSCULAR HGB CONC 33.8 g/dL (33.0-36.5); MEAN CORPUSCULAR VOLUME 84.2 FL (78-98); MEAN PLATELET VOLUME 7.8 FL (7.4-10.4); MONOCYTES # (AUTO) 0.2 X10'3 (0-0.9); MONOCYTES % (AUTO) 4.6 % (2-12); NEUTROPHILS % (AUTO) 89.7 % (42-75); PLATELET COUNT 341 X10'3 (140-440); RED BLOOD COUNT 5.59 X10'6 (4.70-6.10); RED CELL DISTRIBUTION WIDTH 13.9 % (11.5-14.5); WHITE BLOOD COUNT 4.5 X10'3 (4.5-11.0)
[2021-08-20 08:06] LABS: ALBUMIN 2.7 G/DL (3.4-5.0); ANION GAP 10 (8-16); BLOOD UREA NITROGEN 26 MG/DL (7-18); BUN/CREATININE RATIO 43.3 (5.4-32.0); C-REACTIVE PROTEIN 0.09 MG/DL (0.0-0.5); CALCIUM 8.5 MG/DL (8.5-10.1); CHLORIDE 99 MMOL/L (99-107); GLUCOSE 179 MG/DL (70-104); POTASSIUM 5.1 MMOL/L (3.5-5.1); SODIUM 133 MMOL/L (135-145); TOTAL CARBON DIOXIDE 24.5 MMOL/L (24-32); eGFR > 90 ML/MIN
[2021-08-20] MEDS: K and/or MAG REPLACEMENT MC SCH ×2 (08:28→20:00)
[2021-08-20] MEDS: dexamethasone inj 4 MG in dextrose 5%-water 100 ML IV SCH ×2 (08:28→20:03)
[2021-08-20] MEDS: docusate sod 100mg capsule PO SCH ×2 (08:28→20:03)
[2021-08-20] MEDS: enoxaparin 40mg/0.4ml syringe SQ SCH ×2 (08:28→20:05)
[2021-08-20] MEDS: furosemide 20 MG/2 ML vial IV SCH (08:28)
[2021-08-20] MEDS: aspirin 81mg, enteric-coated 1 TAB TABLET.DR PO SCH (08:28)
[2021-08-20 12:00] VITALS: BP 106/58
[2021-08-20] MEDS: insulin Lispro (HumaLOG) vial - multi-dose SQ SCH ×3 (13:08→21:43)
--- NOTE | 2021-08-20 14:39 | NUR ---
Reassessment: Pt continues on heart healthy CHO controlled diet and is eating well with mostly 100% PO intake since 08/17. Pt no longer receiving an Ensure Enlive which is appropriate in view of good PO intake of meals. LBM 08/18. Pt receiving routine bowel care BID and has PRN bowel care available, last given 08/17 per EMR. No nutrition intervention implemented at this time. Will continue to follow and make recommendations as appropriate. Recommendations: 1. Continue CCHO diet as tolerated; removal of heart healthy if physician agreeable 2. Monitor need for additional protein 3. Bowel care per rx 4. Scaled wt this admit, subsequent weekly wt Addendum: 08/20/21 at [address] Amended: Links added.
[2021-08-20 18:00] VITALS: BP 94/56
[2021-08-20] MEDS: acetaminophen 325mg tablet PO PRN (20:04)
[2021-08-20] MEDS: insulin glargine (Lantus) pen - multi-dose SQ SCH (21:00)
--- NOTE | 2021-08-20 21:50 | NUR ---
Patient refused Lantus tonight. Educated on long acting insulin but patient still refused. Patient agreeable to the Humalog dose needed for the high blood sugar. Patient very fearful of having lower blood sugars.
[2021-08-20 22:00] VITALS: BP 82/54
[2021-08-21 02:00] VITALS: BP 94/58
[2021-08-21 06:00] VITALS: BP 106/62
--- NOTE | 2021-08-21 06:17 | NUR ---
Problems reprioritized. Patient report given, questions answered & plan of care reviewed with Rona OROURKE.
[2021-08-21 07:04] LABS: BASOPHILS % (AUTO) 0.3 % (0-1); EOSINOPHILS # (AUTO) 0.1 X10'3 (0-0.9); EOSINOPHILS % (AUTO) 2.1 % (0-6); HEMATOCRIT 48.2 % (42.0-52.0); HEMOGLOBIN 16.7 g/dl (14.0-17.9); LYMPHOCYTES # (AUTO) 0.2 X10'3 (1.1-4.8); LYMPHOCYTES % (AUTO) 4.5 % (21-51); MEAN CORPUSCULAR HEMOGLOBIN 28.9 PG (27.0-31.0); MEAN CORPUSCULAR HGB CONC 34.6 g/dL (33.0-36.5); MEAN CORPUSCULAR VOLUME 83.5 FL (78-98); MEAN PLATELET VOLUME 7.5 FL (7.4-10.4); MONOCYTES # (AUTO) 0.2 X10'3 (0-0.9); MONOCYTES % (AUTO) 4.7 % (2-12); NEUTROPHILS # (AUTO) 3.9 X10'3 (1.8-7.7); NEUTROPHILS % (AUTO) 88.4 % (42-75); PLATELET COUNT 323 X10'3 (140-440); RED BLOOD COUNT 5.78 X10'6 (4.70-6.10); WHITE BLOOD COUNT 4.4 X10'3 (4.5-11.0)
[2021-08-21 07:20] LABS: D-DIMER 2.17 MG/L FEU (0-0.50)
[2021-08-21 07:22] LABS: ALBUMIN 2.8 G/DL (3.4-5.0); ANION GAP 7 (8-16); BLOOD UREA NITROGEN 26 MG/DL (7-18); BUN/CREATININE RATIO 38.8 (5.4-32.0); C-REACTIVE PROTEIN 0.06 MG/DL (0.0-0.5); CALCIUM 8.6 MG/DL (8.5-10.1); CHLORIDE 98 MMOL/L (99-107); CREATININE 0.67 MG/DL (0.60-1.10); GLUCOSE 162 MG/DL (70-104); POTASSIUM 4.8 MMOL/L (3.5-5.1); SODIUM 133 MMOL/L (135-145); TOTAL CARBON DIOXIDE 28.3 MMOL/L (24-32); eGFR > 90 ML/MIN
[2021-08-21] MEDS: K and/or MAG REPLACEMENT MC SCH ×2 (08:00→19:24)
[2021-08-21] MEDS: enoxaparin 40mg/0.4ml syringe SQ SCH (08:46)
[2021-08-21] MEDS: aspirin 81mg, enteric-coated 1 TAB TABLET.DR PO SCH (08:46)
[2021-08-21] MEDS: furosemide 20 MG/2 ML vial IV SCH (08:46)
[2021-08-21] MEDS: dexamethasone inj 4 MG in dextrose 5%-water 100 ML IV SCH ×2 (08:46→19:27)
[2021-08-21] MEDS: docusate sod 100mg capsule PO SCH ×2 (08:46→19:27)
[2021-08-21] MEDS: acetaminophen 325mg tablet PO PRN (08:47)
[2021-08-21] MEDS: insulin Lispro (HumaLOG) vial - multi-dose SQ SCH ×3 (08:59→19:24)
[2021-08-21 10:00] VITALS: BP 100/64
[2021-08-21 14:00] VITALS: BP 100/74
--- NOTE | 2021-08-21 15:37 | NUR ---
Dr. Lopez was informed that patient's heart rate has been in 110-120s, patient is not anxious and does not complain of chest pain. Patient is encouraged to lay on side or prone for maximum oxygenation. Returned call to Valarie, she did not answer.
[2021-08-21 18:00] VITALS: BP 106/72
--- NOTE | 2021-08-21 18:26 | NUR ---
Problems reprioritized. Patient report given, questions answered & plan of care reviewed with Marisabel OROURKE.
--- NOTE | 2021-08-21 18:30 | NUR ---
Patient in room ORTHO 4023. I have received report from SHARAD Rea and had the opportunity to ask questions and assume patient care.
[2021-08-21] MEDS: enoxaparin 60mg/0.6ml syringe SUBCUT SCH (19:27)
[2021-08-21] MEDS ORDERED: enoxaparin 100mg/ml syringe SUBCUT SCH (20:00)
[2021-08-21 22:00] VITALS: BP 121/75
[2021-08-21] MEDS: insulin glargine (Lantus) pen - multi-dose SQ SCH (22:27)
--- NOTE | 2021-08-21 22:30 | NUR ---
Pt. refused to take his hs Insulin.His BS was 218.Keep telling me 'I am ok " I don't need Insulin.We will continue with pt. care
[2021-08-22 01:39] VITALS: BP 106/75
[2021-08-22] MEDS: acetaminophen 325mg tablet PO PRN ×2 (03:28→20:40)
[2021-08-22 06:00] VITALS: BP 109/67
--- NOTE | 2021-08-22 06:28 | NUR ---
Problems reprioritized. Patient report given, questions answered & plan of care reviewed with SHARAD Rea.
[2021-08-22 07:40] LABS: BASOPHILS % (AUTO) 0.2 % (0-1); EOSINOPHILS % (AUTO) 0.3 % (0-6); HEMATOCRIT 48.6 % (42.0-52.0); HEMOGLOBIN 16.5 g/dl (14.0-17.9); LYMPHOCYTES # (AUTO) 0.2 X10'3 (1.1-4.8); LYMPHOCYTES % (AUTO) 2.8 % (21-51); MEAN CORPUSCULAR HEMOGLOBIN 28.5 PG (27.0-31.0); MEAN CORPUSCULAR VOLUME 83.7 FL (78-98); MEAN PLATELET VOLUME 7.5 FL (7.4-10.4); MONOCYTES # (AUTO) 0.5 X10'3 (0-0.9); MONOCYTES % (AUTO) 6.7 % (2-12); NEUTROPHILS # (AUTO) 6.1 X10'3 (1.8-7.7); PLATELET COUNT 334 X10'3 (140-440); WHITE BLOOD COUNT 6.8 X10'3 (4.5-11.0)
[2021-08-22 07:59] LABS: D-DIMER 1.79 MG/L FEU (0-0.50)
[2021-08-22] MEDS: K and/or MAG REPLACEMENT MC SCH ×2 (08:00→20:00)
[2021-08-22 08:06] LABS: ALBUMIN 2.9 G/DL (3.4-5.0); ANION GAP 9 (8-16); BLOOD UREA NITROGEN 29 MG/DL (7-18); BUN/CREATININE RATIO 33.7 (5.4-32.0); C-REACTIVE PROTEIN 0.08 MG/DL (0.0-0.5); CALCIUM 8.7 MG/DL (8.5-10.1); CHLORIDE 99 MMOL/L (99-107); CREATININE 0.86 MG/DL (0.60-1.10); GLUCOSE 197 MG/DL (70-104); POTASSIUM 5.1 MMOL/L (3.5-5.1); SODIUM 135 MMOL/L (135-145); eGFR > 90 ML/MIN
[2021-08-22] MEDS: dexamethasone inj 4 MG in dextrose 5%-water 100 ML IV SCH ×2 (08:49→20:39)
[2021-08-22] MEDS: docusate sod 100mg capsule PO SCH ×3 (08:49→20:38)
[2021-08-22] MEDS: furosemide 20 MG/2 ML vial IV SCH (08:49)
[2021-08-22] MEDS: aspirin 81mg, enteric-coated 1 TAB TABLET.DR PO SCH (08:49)
[2021-08-22] MEDS: enoxaparin 60mg/0.6ml syringe SUBCUT SCH ×2 (08:50→20:38)
[2021-08-22] MEDS: insulin Lispro (HumaLOG) vial - multi-dose SQ SCH ×3 (08:53→19:11)
[2021-08-22 10:00] VITALS: BP 105/68
[2021-08-22 11:25] LABS: ABG BASE EXCESS 1.7 mmol/L (-2.0-2.0); ABG HCO3 24.2 mmol/L (22.0-26.0); ABG OXYGEN SATURATION 94.1 % (94-97); ABG PO2 (T) 65.2 mmHg (75.0-100.0); ALLEN'S TEST POSITIVE; FCOHb 0.3 % (0.0-3.9); FLOW 15 L/min; FMetHb 0.3 % (0.0-1.5); FO2Hb 93.5 % (94-97); PATIENT TEMPERATURE 36.3; TOTAL HEMOGLOBIN 18.7 G/dl (14.0-18.0)
--- NOTE | 2021-08-22 11:53 | NUR ---
Patient refused CXR.
--- NOTE | 2021-08-22 12:40 | NUR ---
PAGER ID: [phone] MESSAGE: [id number]. Patient's daughter says patient was symptomatic 10 days before admission and is wondering when he will be off isolation. Rona OROURKE [phone]
[2021-08-22 14:00] VITALS: BP 112/71
--- NOTE | 2021-08-22 15:27 | NUR ---
Attemped to call Dr. Capone to ask about isolation status per Dr. Lopez, have not been able to reach him.
--- NOTE | 2021-08-22 17:49 | NUR ---
Daughter updated on patient's condition. Iphone placed at bedside table.
[2021-08-22 18:00] VITALS: BP 111/67
--- NOTE | 2021-08-22 18:33 | NUR ---
Problems reprioritized. Patient report given, questions answered & plan of care reviewed with Marisabel OROURKE.
--- NOTE | 2021-08-22 19:40 | NUR ---
Patient in room ORTHO 4023. I have received report from SHARAD Rea and had the opportunity to ask questions and assume patient care.
[2021-08-22] MEDS: insulin glargine (Lantus) pen - multi-dose SQ SCH (21:00)
[2021-08-22 22:00] VITALS: BP 103/62
[2021-08-23 02:00] VITALS: BP 94/56
[2021-08-23] MEDS: acetaminophen 325mg tablet PO PRN ×2 (02:16→16:37)
[2021-08-23 06:00] VITALS: BP 130/70
--- NOTE | 2021-08-23 06:12 | NUR ---
Problems reprioritized. Patient report given, questions answered & plan of care reviewed with SHARAD Rea.
[2021-08-23] MEDS: furosemide 20 MG/2 ML vial IV SCH ×2 (08:00→08:35)
[2021-08-23] MEDS: aspirin 81mg, enteric-coated 1 TAB TABLET.DR PO SCH (08:00)
[2021-08-23] MEDS: dexamethasone inj 4 MG in dextrose 5%-water 100 ML IV SCH ×3 (08:00→19:23)
[2021-08-23] MEDS: docusate sod 100mg capsule PO SCH ×2 (08:00→19:24)
[2021-08-23] MEDS: enoxaparin 60mg/0.6ml syringe SUBCUT SCH ×3 (08:00→19:22)
[2021-08-23] MEDS: K and/or MAG REPLACEMENT MC SCH ×2 (08:00→19:23)
[2021-08-23] MEDS: insulin Lispro (HumaLOG) vial - multi-dose SQ SCH ×3 (08:38→21:16)
[2021-08-23 08:41] LABS: BASOPHILS % (AUTO) 0.4 % (0-1); EOSINOPHILS % (AUTO) 0.2 % (0-6); HEMATOCRIT 53.6 % (42.0-52.0); LYMPHOCYTES # (AUTO) 0.2 X10'3 (1.1-4.8); LYMPHOCYTES % (AUTO) 2.4 % (21-51); MEAN CORPUSCULAR HEMOGLOBIN 28.4 PG (27.0-31.0); MEAN CORPUSCULAR HGB CONC 33.6 g/dL (33.0-36.5); MEAN CORPUSCULAR VOLUME 84.5 FL (78-98); MEAN PLATELET VOLUME 7.8 FL (7.4-10.4); MONOCYTES # (AUTO) 0.4 X10'3 (0-0.9); MONOCYTES % (AUTO) 4.7 % (2-12); NEUTROPHILS # (AUTO) 7.9 X10'3 (1.8-7.7); NEUTROPHILS % (AUTO) 92.3 % (42-75); PLATELET COUNT 329 X10'3 (140-440); RED BLOOD COUNT 6.35 X10'6 (4.70-6.10); RED CELL DISTRIBUTION WIDTH 14.1 % (11.5-14.5); WHITE BLOOD COUNT 8.6 X10'3 (4.5-11.0)
--- NOTE | 2021-08-23 08:42 | NUR ---
PAGER ID: [phone] MESSAGE: [id number]. Critical co2 42.6. Rona OROURKE [phone]
--- NOTE | 2021-08-23 08:50 | NUR ---
PAGER ID: [phone] MESSAGE: [id number]. Hgb critical lab value of 18.0. Rona OROURKE [phone]
[2021-08-23 08:52] LABS: D-DIMER 1.59 MG/L FEU (0-0.50)
[2021-08-23 09:04] LABS: ALBUMIN 3.1 G/DL (3.4-5.0); ANION GAP 6 (8-16); BLOOD UREA NITROGEN 29 MG/DL (7-18); BUN/CREATININE RATIO 37.2 (5.4-32.0); C-REACTIVE PROTEIN 0.12 MG/DL (0.0-0.5); CALCIUM 9.1 MG/DL (8.5-10.1); CHLORIDE 99 MMOL/L (99-107); CREATININE 0.78 MG/DL (0.60-1.10); GLUCOSE 206 MG/DL (70-104); POTASSIUM 4.9 MMOL/L (3.5-5.1); SODIUM 134 MMOL/L (135-145); TOTAL CARBON DIOXIDE 28.9 MMOL/L (24-32); eGFR > 90 ML/MIN
[2021-08-23 10:00] VITALS: BP 126/81
[2021-08-23 14:00] VITALS: BP 109/74
[2021-08-23 15:03] LABS: ABG BASE EXCESS 2.2 mmol/L (-2.0-2.0); ABG HCO3 24.9 mmol/L (22.0-26.0); ABG PO2 (T) 52.1 mmHg (75.0-100.0); ALLEN'S TEST POSITIVE; FCOHb 0.3 % (0.0-3.9); FMetHb 0.3 % (0.0-1.5); FO2Hb 88.5 % (94-97); TOTAL HEMOGLOBIN 19.6 G/dl (14.0-18.0)
--- NOTE | 2021-08-23 17:57 | NUR ---
Dr. Lopez is aware of patient's ABG results, still advising patient to be put on bipap despite patient refusing. Patient was informed about condition process and his options were explained to him, he is still unsure what life saving measures he wishes to have and is still full code as of now. Patient refuses some meds, insulin at times, and bed baths.
[2021-08-23 18:00] VITALS: BP 122/88
[2021-08-23] MEDS: insulin glargine (Lantus) pen - multi-dose SQ SCH ×2 (21:18→23:38)
[2021-08-23] MEDS: ALPRAZolam 0.25mg tablet PO PRN (21:18)
[2021-08-23 22:00] VITALS: BP 126/77
--- NOTE | 2021-08-23 23:57 | NUR ---
Pt. is refusing his hs insulin .His BS was 258 ,he keep telling me he is o.k He is non compliant with his care.I explained to him in a good way that he has to listen and follow his care for good outcome.We will continue with pt. care.
[2021-08-24 02:00] VITALS: BP 114/82
[2021-08-24 06:00] VITALS: BP 120/73
--- NOTE | 2021-08-24 06:10 | NUR ---
Problems reprioritized. Patient report given, questions answered & plan of care reviewed with SHARAD Kaminski.
--- NOTE | 2021-08-24 06:30 | NUR ---
received report from wilmer penn
[2021-08-24] MEDS: enoxaparin 60mg/0.6ml syringe SUBCUT SCH ×2 (07:06→19:19)
[2021-08-24] MEDS: aspirin 81mg, enteric-coated 1 TAB TABLET.DR PO SCH (07:06)
[2021-08-24] MEDS: acetaminophen 325mg tablet PO PRN ×2 (07:11→21:34)
[2021-08-24] MEDS: dexamethasone inj 4 MG in dextrose 5%-water 100 ML IV SCH (07:13)
[2021-08-24] MEDS: furosemide 20 MG/2 ML vial IV SCH (07:13)
[2021-08-24] MEDS: docusate sod 100mg capsule PO SCH ×2 (07:22→20:00)
--- NOTE | 2021-08-24 07:22 | NUR ---
scanner on computer not scanning meds into [facility], checked all meds prior to admin
[2021-08-24] MEDS: K and/or MAG REPLACEMENT MC SCH ×2 (08:00→20:00)
[2021-08-24 08:34] LABS: BASOPHILS % (AUTO) 0.2 % (0-1); EOSINOPHILS % (AUTO) 0.2 % (0-6); HEMATOCRIT 54.1 % (42.0-52.0); LYMPHOCYTES # (AUTO) 0.3 X10'3 (1.1-4.8); MEAN CORPUSCULAR HEMOGLOBIN 28.8 PG (27.0-31.0); MEAN CORPUSCULAR VOLUME 84.7 FL (78-98); MONOCYTES # (AUTO) 0.5 X10'3 (0-0.9); MONOCYTES % (AUTO) 5.1 % (2-12); NEUTROPHILS # (AUTO) 9.7 X10'3 (1.8-7.7); NEUTROPHILS % (AUTO) 91.5 % (42-75); PLATELET COUNT 339 X10'3 (140-440); RED BLOOD COUNT 6.39 X10'6 (4.70-6.10); RED CELL DISTRIBUTION WIDTH 14.2 % (11.5-14.5); WHITE BLOOD COUNT 10.5 X10'3 (4.5-11.0)
[2021-08-24 08:38] LABS: D-DIMER 1.62 MG/L FEU (0-0.50)
[2021-08-24 08:39] LABS: HEMOGLOBIN 18.4 g/dl (14.0-17.9)
--- NOTE | 2021-08-24 08:42 | NUR ---
pt is refusing to take insulin at this time, continue to educate
[2021-08-24 08:57] LABS: ALBUMIN 3.1 G/DL (3.4-5.0); ANION GAP 14 (8-16); BLOOD UREA NITROGEN 28 MG/DL (7-18); BUN/CREATININE RATIO 36.8 (5.4-32.0); C-REACTIVE PROTEIN 0.61 MG/DL (0.0-0.5); CALCIUM 9.2 MG/DL (8.5-10.1); CHLORIDE 96 MMOL/L (99-107); CREATININE 0.76 MG/DL (0.60-1.10); GLUCOSE 210 MG/DL (70-104); POTASSIUM 4.8 MMOL/L (3.5-5.1); SODIUM 134 MMOL/L (135-145); TOTAL CARBON DIOXIDE 23.6 MMOL/L (24-32); eGFR > 90 ML/MIN
[2021-08-24 10:00] VITALS: BP_SYST 134; BP_SYST 144; BP_DIAS 84; BP_DIAS 88
--- NOTE | 2021-08-24 14:35 | NUR ---
continue to educate pt on the importance of keeping his blood sugar at a normal level of 80-110, pt continues to refuse insulin due to the fact that his 'blood sugar had dropped too low', continue to monitor and educate
--- NOTE | 2021-08-24 17:00 | NUR ---
PT BG IS IN THE 300, PT AGREED TO ONLY HAVING 15 UNITS OF INSULIN, PT IS CURRENTLY OUT OF INSULIN, CALLED PHARMACY ABOUT MAKING MORE INSULIN AVAILABLE, CONTINUE TO MONITOR PT
--- NOTE | 2021-08-24 17:55 | NUR ---
GAVE REPORT TO SHARAD HOOKS
[2021-08-24 18:00] VITALS: BP 117/84
[2021-08-24] MEDS: insulin Lispro (HumaLOG) vial - multi-dose SQ SCH (19:20)
[2021-08-24] MEDS: insulin glargine (Lantus) pen - multi-dose SQ SCH (21:00)
[2021-08-24 22:00] VITALS: BP 111/85
[2021-08-25] VITALS (12 sets, daily range): BP systolic 85–129; BP diastolic 51–91
[2021-08-25] MEDS ORDERED: metoprolol tartrate 25mg tablet PO STA (05:11)
--- NOTE | 2021-08-25 05:57 | NUR ---
PATIENT CONTINUES TO HAVE ISSUES WITH ANXIETY THROUGH THE NIGHT. APPROXIMATELY 0400 SPO2 DROPPED TO MID 70'S. PT ASKING "PLEASE HOLD ME" FOR COMFORT TO HELP DECREASE ANXIETY. MULTIPLE NURSES AT THE BEDSIDE HOLDING HIS HANDS. AFTER HALF AN HOUR HIS SPO2 WAS SUSTAINING 85-90% ON 40L 100% HIGH FLOW. MULTIPLE OFFERS WERE MADE TO ADMINISTER XANAX WHICH PATIENT REFUSED. PTS HEART RATE SUSTAINING IN 120S-150'S. CALLED DR. LOCKHART WHO ORDERED METOPROLOL WHICH MIGHT ALSO HELP WITH ANXIETY. AT THE TIME THE PATIENT ALSO REFUSED THIS BUT IS NOW THINKING ABOUT TAKING IT. "AFTER TALKING TO MY DAUGHTER IN AN HOUR AND A HALF". ASKING MULTIPLE REPEATED QUESTIONS ABOUT THE MED. VERY HESITANT TO TAKE IT. GAVE MUCH INFORMATION ABOUT THE MEDICATION I COULD BUT ULTIMATELY LEFT THE PATIENT TO SPEAK TO THE MD ABOUT IT TODAY. PT ALSO ASKING ABOUT CHANGING HIS CODE STATUS TO DNR. WILL PASS THIS INFORMATION TO DAY SHIFT.
--- NOTE | 2021-08-25 06:22 | NUR ---
PATIENT SPOKE TO HIS DAUGHTER AND AND WAS AGREEABLE TO TAKE METOPROLOL
--- NOTE | 2021-08-25 06:30 | NUR ---
received report from wilmer corley
[2021-08-25] MEDS: aspirin 81mg, enteric-coated 1 TAB TABLET.DR PO SCH (06:58)
[2021-08-25] MEDS: furosemide 20 MG/2 ML vial IV SCH (07:00)
[2021-08-25] MEDS: enoxaparin 60mg/0.6ml syringe SUBCUT SCH (07:04)
[2021-08-25] MEDS: docusate sod 100mg capsule PO SCH (07:09)
[2021-08-25] MEDS: K and/or MAG REPLACEMENT MC SCH (07:50)
[2021-08-25] MEDS ORDERED: dexamethasone inj 6 MG in dextrose 5%-water 100 ML IV SCH (08:00)
[2021-08-25] MEDS ORDERED: LIDOcaine 2% 10ml TOPICAL JELLY (Urojet) TP ONE (08:15)
--- NOTE | 2021-08-25 08:26 | NUR ---
pt is refusing to take insulin for his 250 bg, continue to educate and to monitor
--- NOTE | 2021-08-25 09:00 | NUR ---
even w/daughter at bedside, pt is having extreme anxiety at this time, continue to educate and encourage pt to take his xanax
[2021-08-25] MEDS: ALPRAZolam 0.25mg tablet PO PRN (09:17)
[2021-08-25] MEDS ORDERED: LORazepam 2 mg/ml vial IV STA ×2 (12:09→14:11)
[2021-08-25] MEDS ORDERED: LORazepam 2 mg/ml vial IV PRN (12:10)
--- NOTE | 2021-08-25 12:31 | NUR ---
AGER ID: [phone] MESSAGE: ALSO ZAIRA JULIAN WANTS DNR FOR CODE STATUS. HE REFUSES TO TAKE FULL DOSE OF INSULIN ALSO WOULD BE 36 UNTIS, HE IS AGREEABLE TO 20 UNITS. (138 character message out of a maximum of 240)
[2021-08-25] MEDS: insulin Lispro (HumaLOG) vial - multi-dose SQ SCH ×2 (12:34→17:04)
[2021-08-25 12:50] LABS: ABG BASE EXCESS -6.3 mmol/L (-2.0-2.0); ABG OXYGEN SATURATION 89.8 % (94-97); ABG PCO2 (T) 33.5 mmHg (35.0-48.0); ABG PO2 (T) 59.1 mmHg (75.0-100.0); ALLEN'S TEST POSITIVE; FCOHb 0.4 % (0.0-3.9); FLOW 55 L/min; FMetHb 0.3 % (0.0-1.5); FO2Hb 89.2 % (94-97); TOTAL HEMOGLOBIN 20.1 G/dl (14.0-18.0)
[2021-08-25] MEDS ORDERED: iohexol 350MG/ML 100ml bottle IV ONE (13:06)
[2021-08-25] MEDS ORDERED: LORazepam 2 mg/ml vial IM ONE (13:25)
[2021-08-25] MEDS: lactose-reduced food (Ensure Enlive) - 237ml bottle PO SCH ×2 (13:30→17:18)
[2021-08-25 14:59] LABS: ABG BASE EXCESS -7.7 mmol/L (-2.0-2.0); ABG PCO2 (T) 30.2 mmHg (35.0-48.0); ABG PO2 (T) 49.7 mmHg (75.0-100.0); ALLEN'S TEST Modified; FCOHb 0.8 % (0.0-3.9); FMetHb 0.2 % (0.0-1.5); FO2Hb 83.2 % (94-97); RESPIRATORY RATE 8 b/min; TOTAL HEMOGLOBIN 20.6 G/dl (14.0-18.0)
[2021-08-25] MEDS: dexmedetomidine/D5W 100mL 100 ML IV SCH ×3 (15:44→23:46)
--- NOTE | 2021-08-25 15:44 | NUR ---
gave report to icu
[2021-08-25 16:06] LABS: BASOPHILS # (AUTO) 0.1 X10'3 (0-0.2); BASOPHILS % (AUTO) 0.4 % (0-1); EOSINOPHILS % (AUTO) 0.1 % (0-6); HEMATOCRIT 51.7 % (42.0-52.0); HEMOGLOBIN 17.3 g/dl (14.0-17.9); LYMPHOCYTES # (AUTO) 0.2 X10'3 (1.1-4.8); LYMPHOCYTES % (AUTO) 1.6 % (21-51); MEAN CORPUSCULAR HEMOGLOBIN 28.7 PG (27.0-31.0); MEAN CORPUSCULAR HGB CONC 33.5 g/dL (33.0-36.5); MEAN CORPUSCULAR VOLUME 85.5 FL (78-98); MEAN PLATELET VOLUME 7.7 FL (7.4-10.4); MONOCYTES # (AUTO) 0.4 X10'3 (0-0.9); NEUTROPHILS # (AUTO) 13.9 X10'3 (1.8-7.7); NEUTROPHILS % (AUTO) 94.9 % (42-75); PLATELET COUNT 274 X10'3 (140-440); RED BLOOD COUNT 6.04 X10'6 (4.70-6.10); RED CELL DISTRIBUTION WIDTH 14.5 % (11.5-14.5); WHITE BLOOD COUNT 14.6 X10'3 (4.5-11.0)
[2021-08-25 16:14] LABS: D-DIMER 1.84 MG/L FEU (0-0.50)
[2021-08-25] MEDS ORDERED: linezolid 600mg/300ml PREMIX 300 ML IV ONE (16:15)
[2021-08-25 16:45] LABS: ALANINE AMINOTRANSFERASE 36 U/L (12-78); ALBUMIN 2.8 G/DL (3.4-5.0); ALBUMIN/GLOBULIN RATIO 0.9 (1.1-1.5); ANION GAP 13 (8-16); ASPARTATE AMINO TRANSFERASE 26 U/L (10-37); BILIRUBIN,TOTAL 1.9 MG/DL (0.1-1.0); BLOOD UREA NITROGEN 42 MG/DL (7-18); BUN/CREATININE RATIO 34.4 (5.4-32.0); CALCIUM 8.3 MG/DL (8.5-10.1); CHLORIDE 95 MMOL/L (99-107); CREATININE 1.22 MG/DL (0.60-1.10); MAGNESIUM 2.6 MG/DL (1.5-2.4); PHOSPHORUS 6.8 MG/DL (2.3-4.5); POTASSIUM 4.8 MMOL/L (3.5-5.1); SODIUM 130 MMOL/L (135-145); TOTAL CARBON DIOXIDE 21.7 MMOL/L (24-32); TOTAL PROTEIN 5.8 G/DL (6.4-8.2); eGFR 61 ML/MIN
[2021-08-25 17:04] LABS: GLUCOSE 513 MG/DL (70-104)
[2021-08-25 17:05] LABS: PLATELET ESTIMATE NORMAL; TOTAL CELLS COUNTED 100
[2021-08-25] MEDS: linezolid 600mg/300ml PREMIX 300 ML IV SCH (17:12)
[2021-08-25] MEDS: cefepime 1GM/NS ADD-VANTAGE 100 ML IV SCH (17:12)
[2021-08-25] MEDS ORDERED: normal saline 1000ml 1,000 ML IV ONE (17:55)
[2021-08-25] MEDS: normal saline 1000ml 1,000 ML IV SCH ×3 (18:50→23:44)
[2021-08-25] MEDS ORDERED: albumin (Human) 5% 250ml 250 ML IV ONE (19:00)
[2021-08-25] MEDS ORDERED: NORepinephrine 8mg/ 250ml NS 250 ML IV SCH (19:00)
[2021-08-25 19:53] LABS: ABG BASE EXCESS -1.4 mmol/L (-2.0-2.0); ABG HCO3 22.7 mmol/L (22.0-26.0); ABG OXYGEN SATURATION 94.6 % (94-97); ABG PCO2 (T) 35.3 mmHg (35.0-48.0); ABG PO2 (T) 69.9 mmHg (75.0-100.0); ALLEN'S TEST POSITIVE; FCOHb 0.8 % (0.0-3.9); FMetHb 0.3 % (0.0-1.5); FO2Hb 93.6 % (94-97); PATIENT TEMPERATURE 36.1; RESPIRATORY RATE 8 b/min; TOTAL HEMOGLOBIN 17.4 G/dl (14.0-18.0)
[2021-08-25] MEDS ORDERED: enoxaparin 30mg/0.3ml syringe SUBCUT SCH (20:00)
[2021-08-25] MEDS ORDERED: enoxaparin 80mg/0.8ml syringe SUBCUT SCH (20:00)
--- NOTE | 2021-08-25 20:00 | NUR ---
Critical lactic of 5.[address] Caldera. Blood sugar of 409 reported as well. wanted to start insulin drip but after many failed IV starts and blood sugar dropping to 186 insulin drip was cancelled. Dr verbally ordered antibiotics restarted and LR to be started and to wait to take pt to CTA until day shift. and daughter called to clarify the pt's wishes and had the opportunity to talk to the doctor about him wanting to be DNI/DNR. Daughter and are both requesting to visit pt and due to the pt in the Covid Unit the hospital policy allows one family member to see the pt at this time. Daughter is requesting that the pt's sons be able to see pt soon.
[2021-08-25] MEDS: dextrose 5%-1/2 normal saline 1,000 ML IV SCH (21:25)
[2021-08-25] MEDS ORDERED: Insulin Reg/NS 100units/100mL 100 ML IV SCH (21:25)
[2021-08-25] MEDS ORDERED: dextrose 50%-water 50ml dispensing syringe IV PRN (21:25)
[2021-08-25] MEDS: Insulin Reg/NS 100units/100mL 100 ML IV SCH (21:46)
[2021-08-25] MEDS: methylPREDNISolone sod succ 125mg/2ml vial IV SCH (23:44)
[2021-08-26] VITALS (24 sets, daily range): BP systolic 91–118; BP diastolic 50–76
[2021-08-26] MEDS ORDERED: ringers solution, lacted 1,000 ML IV SCH (00:30)
[2021-08-26 02:48] LABS: BASOPHILS % (AUTO) 0.2 % (0-1); EOSINOPHILS % (AUTO) 0.1 % (0-6); HEMATOCRIT 29.7 % (42.0-52.0); HEMOGLOBIN 9.7 g/dl (14.0-17.9); LYMPHOCYTES # (AUTO) 0.2 X10'3 (1.1-4.8); LYMPHOCYTES % (AUTO) 2.9 % (21-51); MEAN CORPUSCULAR HEMOGLOBIN 28.3 PG (27.0-31.0); MEAN CORPUSCULAR HGB CONC 32.8 g/dL (33.0-36.5); MEAN CORPUSCULAR VOLUME 86.2 FL (78-98); MEAN PLATELET VOLUME 7.9 FL (7.4-10.4); MONOCYTES # (AUTO) 0.4 X10'3 (0-0.9); MONOCYTES % (AUTO) 5.3 % (2-12); NEUTROPHILS # (AUTO) 6.1 X10'3 (1.8-7.7); NEUTROPHILS % (AUTO) 91.5 % (42-75); PLATELET COUNT 134 X10'3 (140-440); RED BLOOD COUNT 3.44 X10'6 (4.70-6.10); RED CELL DISTRIBUTION WIDTH 14.2 % (11.5-14.5); WHITE BLOOD COUNT 6.7 X10'3 (4.5-11.0)
[2021-08-26 02:59] LABS: D-DIMER 1.23 MG/L FEU (0-0.50)
[2021-08-26 03:07] LABS: ALBUMIN 1.3 G/DL (3.4-5.0); ANION GAP 11 (8-16); BLOOD UREA NITROGEN 21 MG/DL (7-18); C-REACTIVE PROTEIN 1.99 MG/DL (0.0-0.5); CALCIUM 6.3 MG/DL (8.5-10.1); CHLORIDE 97 MMOL/L (99-107); CREATININE 0.42 MG/DL (0.60-1.10); GLUCOSE 425 MG/DL (70-104); MAGNESIUM 1.3 MG/DL (1.5-2.4); SODIUM 126 MMOL/L (135-145); TOTAL CARBON DIOXIDE 18.2 MMOL/L (24-32); eGFR > 90 ML/MIN
[2021-08-26] MEDS: normal saline 1000ml 1,000 ML IV SCH ×2 (03:20→04:28)
[2021-08-26] MEDS: dexmedetomidine/D5W 100mL 100 ML IV SCH ×4 (03:25→14:45)
[2021-08-26] MEDS: linezolid 600mg/300ml PREMIX 300 ML IV SCH ×2 (03:26→15:49)
[2021-08-26] MEDS: LORazepam 2 mg/ml vial IV PRN ×6 (04:01→21:30)
[2021-08-26] MEDS: dextrose 5%-1/2 normal saline 1,000 ML IV SCH (04:05)
--- NOTE | 2021-08-26 04:35 | NUR ---
reported lactic of 11.[address] Clarke. and all other lab values. reordering CBC for AM.
--- NOTE | 2021-08-26 06:26 | NUR ---
report given to oncoming nurse SHARAD Johnson. plan of care was discussed and all questions and concerns where addressed.
[2021-08-26] MEDS: methylPREDNISolone sod succ 125mg/2ml vial IV SCH ×2 (07:51→15:49)
[2021-08-26] MEDS: cefepime 1GM/NS ADD-VANTAGE 100 ML IV SCH ×2 (07:51→15:49)
[2021-08-26] MEDS: docusate sod 100mg capsule PO SCH ×2 (08:00→20:00)
[2021-08-26] MEDS: lactose-reduced food (Ensure Enlive) - 237ml bottle PO SCH (08:00)
[2021-08-26] MEDS: K and/or MAG REPLACEMENT MC SCH ×2 (08:00→20:00)
[2021-08-26] MEDS: aspirin 81mg, enteric-coated 1 TAB TABLET.DR PO SCH (08:00)
[2021-08-26] MEDS: insulin Lispro (HumaLOG) vial - multi-dose SQ SCH ×2 (08:31→14:06)
[2021-08-26] MEDS ORDERED: furosemide 40mg/4ml inj IV ONE (09:25)
[2021-08-26] MEDS ORDERED: furosemide 40mg/4ml inj ONE (09:26)
[2021-08-26 09:28] LABS: BASOPHILS % (AUTO) 0.1 % (0-1); EOSINOPHILS % (AUTO) 0 % (0-6); HEMATOCRIT 43.2 % (42.0-52.0); HEMOGLOBIN 14.5 g/dl (14.0-17.9); LYMPHOCYTES # (AUTO) 0.3 X10'3 (1.1-4.8); LYMPHOCYTES % (AUTO) 3.3 % (21-51); MEAN CORPUSCULAR HEMOGLOBIN 28.7 PG (27.0-31.0); MEAN CORPUSCULAR HGB CONC 33.6 g/dL (33.0-36.5); MEAN CORPUSCULAR VOLUME 85.3 FL (78-98); MONOCYTES # (AUTO) 0.1 X10'3 (0-0.9); MONOCYTES % (AUTO) 1.5 % (2-12); NEUTROPHILS # (AUTO) 8.9 X10'3 (1.8-7.7); NEUTROPHILS % (AUTO) 95.1 % (42-75); PLATELET COUNT 192 X10'3 (140-440); RED BLOOD COUNT 5.07 X10'6 (4.70-6.10); RED CELL DISTRIBUTION WIDTH 14.4 % (11.5-14.5); WHITE BLOOD COUNT 9.3 X10'3 (4.5-11.0)
[2021-08-26] MEDS ORDERED: enoxaparin 100mg/ml syringe SUBCUT SCH ×3 (10:55→20:00)
[2021-08-26] MEDS: enoxaparin 30mg/0.3ml syringe SUBCUT SCH ×2 (11:07→20:00)
[2021-08-26] MEDS: enoxaparin 80mg/0.8ml syringe SUBCUT SCH ×2 (11:07→20:00)
--- NOTE | 2021-08-26 12:02 | NUR ---
TPN consult: Per MD notes pt s/p rapid response and transferred to critical care. Pt remains on BiPAP d/t respiratory requirements. Pt to be NPO and receive PN for nutrition per MD. Pt only with a PIV at this time. Per MD pt will get central access however if unable to achieve access today it's okay for pt to receive PPN. TPN and PPN recommendations below have been d/w clinical pharmacist. Noted Ensure Enlive was ordered for pt 08/25 which was appropriate at the time as pt documented to be refusing most meals since 08/22. D/w clinical pharmacist recommendation to discontinue ONS given NPO status. Pt with BG range 140-513 mg/dL over the last 24 hours. Per rail crew member pt refusing insulin tx per rx. Noted pt started on Linezolid, pt currently A/O x 1 per EMR. Low tyramine nutrition therapy education deferred at this time. Pt with a low Ok of 12, no edema and skin intact per EMR. LBM 08/23, documented to be refusing routine bowel care prior to NPO status. Will continue to follow closely. Recommendations: 1. IF central access achieved, continuous TPN per MD using 2:1 Clinimix-E 5/20 with 105 mL goal rate with additional 250 mL 20% intralipids to run at 20.83 mL/hr for 12 hours on Tuesdays and Fridays. In total to provide 2520 mL volume/day, 126 g AA, 504 g dext (3.21 mg/kg/min dext load), and average 2361 kcal/day 2. IF unable to achieve central access, continuous PPN per MD using 2:1 Clinimix 4.25/10 with 120 mL goal rate with additional 250 mL 20% intralipids to run at 20.83 mL/hr for 12 hours on Tuesdays and Fridays. In total to provide 2880 mL volume/day, 122 g AA, 288 g dext (1.83 mg/kg/min dext load), and average 1612 kcal. Will meet 100% EPN and 80% EEN 3. Monitor for a scaled weight and need to adjust recommendations 4. Prealbumin and TG q Wednesday/ 5. Daily scaled weights 6. Advance to CHO controlled diet as medically indicated 7. Routine bowel care Addendum: 08/26/21 at [address] Amended: Links added. Addendum: 08/26/21 at [address] CORRECTION* Recommendations: 1. IF central access achieved, continuous TPN per MD using 2:1 Clinimix-E 5/20 with 105 mL goal rate with additional 250 mL 20% intralipids to run at 20.83 mL/hr for 12 hours on Tuesdays and Fridays. In total to provide 2520 mL volume/day, 126 g AA, 504 g dext (3.21 mg/kg/min dext load), and average 2361 kcal/day 2. IF unable to achieve central access, continuous PPN per MD using 2:1 Clinimix E 4.25/10 with 120 mL goal rate with additional 250 mL 20% intralipids to run at 20.83 mL/hr for 12 hours on Tuesdays and Fridays. In total to provide 2880 mL volume/day, 122 g AA, 288 g dext (1.83 mg/kg/min dext load), and average 1612 kcal. Will meet 100% EPN and 80% EEN
[2021-08-26 12:24] LABS: BASOPHILS % (AUTO) 0.1 % (0-1); EOSINOPHILS % (AUTO) 0 % (0-6); HEMATOCRIT 45.8 % (42.0-52.0); HEMOGLOBIN 15.2 g/dl (14.0-17.9); LYMPHOCYTES # (AUTO) 0.3 X10'3 (1.1-4.8); LYMPHOCYTES % (AUTO) 2.2 % (21-51); MEAN CORPUSCULAR HEMOGLOBIN 28.3 PG (27.0-31.0); MEAN CORPUSCULAR HGB CONC 33.1 g/dL (33.0-36.5); MEAN CORPUSCULAR VOLUME 85.3 FL (78-98); MEAN PLATELET VOLUME 8.2 FL (7.4-10.4); MONOCYTES # (AUTO) 0.2 X10'3 (0-0.9); MONOCYTES % (AUTO) 1.9 % (2-12); NEUTROPHILS # (AUTO) 11.1 X10'3 (1.8-7.7); NEUTROPHILS % (AUTO) 95.8 % (42-75); PLATELET COUNT 219 X10'3 (140-440); RED BLOOD COUNT 5.37 X10'6 (4.70-6.10); RED CELL DISTRIBUTION WIDTH 14.3 % (11.5-14.5); WHITE BLOOD COUNT 11.6 X10'3 (4.5-11.0)
[2021-08-26] MEDS ORDERED: magnesium Cl slow-release 64mg tablet PO PRN (15:45)
[2021-08-26] MEDS ORDERED: Dextrose 10%-water IV solution 1,000 ML IV PRN (15:45)
[2021-08-26] MEDS ORDERED: magnesium 4gm in 100ml NS 100 ML IV PRN (15:45)
[2021-08-26] MEDS ORDERED: magnesium 2GM in 50ml NS 50 ML IV PRN (15:45)
[2021-08-26 16:16] LABS: TRIGLYCERIDES 106 MG/DL (20-135)
[2021-08-26 16:27] LABS: PREALBUMIN 12.6 MG/DL (19-36)
[2021-08-26] MEDS ORDERED: ZINC/COPPER/MANGANESE/SELENIUM 0.5 ML, chromic chloride inj. 5 MCG in AA 4.25%/CALCIUM/... IV SCH (20:00)
[2021-08-26] MEDS: insulin glargine (Lantus) pen - multi-dose SQ SCH (21:00)
[2021-08-27] VITALS (24 sets, daily range): BP systolic 96–140; BP diastolic 60–101
[2021-08-27] MEDS: cefepime 1GM/NS ADD-VANTAGE 100 ML IV SCH ×3 (00:33→15:41)
[2021-08-27] MEDS: methylPREDNISolone sod succ 125mg/2ml vial IV SCH ×4 (00:33→23:05)
[2021-08-27] MEDS: insulin Lispro (HumaLOG) vial - multi-dose SQ SCH ×2 (00:36→02:58)
[2021-08-27] MEDS: LORazepam 2 mg/ml vial IV PRN ×5 (00:40→18:53)
[2021-08-27] MEDS: dexmedetomidine/D5W 100mL 100 ML IV SCH ×2 (02:34→19:15)
[2021-08-27] MEDS: linezolid 600mg/300ml PREMIX 300 ML IV SCH ×2 (04:34→15:41)
[2021-08-27] MEDS: HYDROmorphone inj. 0.5 MG/0.5 ML DISP.SYRIN IV PRN (05:47)
[2021-08-27 06:31] LABS: C-REACTIVE PROTEIN 1.42 MG/DL (0.0-0.5); MAGNESIUM 2.4 MG/DL (1.5-2.4); PHOSPHORUS 3.9 MG/DL (2.3-4.5)
[2021-08-27] MEDS: docusate sod 100mg capsule PO SCH ×2 (08:00→20:00)
[2021-08-27] MEDS: K and/or MAG REPLACEMENT MC SCH ×2 (08:00→20:00)
[2021-08-27] MEDS: aspirin 81mg, enteric-coated 1 TAB TABLET.DR PO SCH (08:00)
[2021-08-27] MEDS: enoxaparin 80mg/0.8ml syringe SUBCUT SCH (08:01)
[2021-08-27] MEDS: enoxaparin 30mg/0.3ml syringe SUBCUT SCH (08:02)
[2021-08-27] MEDS: insulin regular, human U-100 3ml vial - multi-dose SQ SCH ×3 (08:56→22:32)
[2021-08-27 09:16] LABS: BASOPHILS % (AUTO) 0.4 % (0-1); EOSINOPHILS % (AUTO) 0 % (0-6); HEMATOCRIT 45.5 % (42.0-52.0); HEMOGLOBIN 15.3 g/dl (14.0-17.9); LYMPHOCYTES # (AUTO) 0.3 X10'3 (1.1-4.8); LYMPHOCYTES % (AUTO) 2.9 % (21-51); MEAN CORPUSCULAR HEMOGLOBIN 28.5 PG (27.0-31.0); MEAN CORPUSCULAR HGB CONC 33.5 g/dL (33.0-36.5); MEAN CORPUSCULAR VOLUME 85.1 FL (78-98); MONOCYTES # (AUTO) 0.3 X10'3 (0-0.9); NEUTROPHILS # (AUTO) 8.4 X10'3 (1.8-7.7); NEUTROPHILS % (AUTO) 93.7 % (42-75); PLATELET COUNT 180 X10'3 (140-440); RED BLOOD COUNT 5.35 X10'6 (4.70-6.10); RED CELL DISTRIBUTION WIDTH 14.4 % (11.5-14.5)
[2021-08-27 09:23] LABS: ALBUMIN 2.6 G/DL (3.4-5.0); ANION GAP 6 (8-16); BLOOD UREA NITROGEN 32 MG/DL (7-18); CALCIUM 8.2 MG/DL (8.5-10.1); CHLORIDE 103 MMOL/L (99-107); CREATININE 0.78 MG/DL (0.60-1.10); GLUCOSE 263 MG/DL (70-104); POTASSIUM 4.6 MMOL/L (3.5-5.1); SODIUM 135 MMOL/L (135-145); TOTAL CARBON DIOXIDE 26.3 MMOL/L (24-32); eGFR > 90 ML/MIN
[2021-08-27 09:35] LABS: MAGNESIUM 2.5 MG/DL (1.5-2.4); PHOSPHORUS 3.7 MG/DL (2.3-4.5)
[2021-08-27] MEDS ORDERED: NORepinephrine 8mg/ 250ml NS 250 ML IV ONE (10:36)
[2021-08-27] MEDS: pantoprazole 40MG/NS 100ML BAG 100 ML IV SCH (15:33)
[2021-08-27] MEDS: ZINC/COPPER/MANGANESE/SELENIUM 0.5 ML, chromic chloride inj. 5 MCG in AA 4.25%/CALCIUM/... IV SCH (17:10)
[2021-08-27 17:51] LABS: UREA NITROGEN 24HR,URINE 30.1 GM/24HR (7-20)
[2021-08-27] MEDS: enoxaparin 60mg/0.6ml syringe SUBCUT SCH (20:00)
[2021-08-27] MEDS: insulin glargine (Lantus) pen - multi-dose SQ SCH (21:00)
[2021-08-28] VITALS (24 sets, daily range): BP systolic 103–151; BP diastolic 69–98
[2021-08-28] MEDS: cefepime 1GM/NS ADD-VANTAGE 100 ML IV SCH ×3 (00:59→16:00)
[2021-08-28] MEDS: ZINC/COPPER/MANGANESE/SELENIUM 0.5 ML, chromic chloride inj. 5 MCG in AA 4.25%/CALCIUM/... IV SCH ×2 (00:59→10:23)
[2021-08-28] MEDS: dexmedetomidine/D5W 100mL 100 ML IV SCH ×2 (01:00→07:33)
[2021-08-28] MEDS: linezolid 600mg/300ml PREMIX 300 ML IV SCH ×2 (03:08→16:00)
[2021-08-28] MEDS: insulin regular, human U-100 3ml vial - multi-dose SQ SCH ×4 (03:14→19:54)
[2021-08-28 03:35] LABS: BASOPHILS % (AUTO) 0 % (0-1); EOSINOPHILS % (AUTO) 0 % (0-6); HEMATOCRIT 42.4 % (42.0-52.0); HEMOGLOBIN 14.3 g/dl (14.0-17.9); LYMPHOCYTES # (AUTO) 0.1 X10'3 (1.1-4.8); LYMPHOCYTES % (AUTO) 1.5 % (21-51); MEAN CORPUSCULAR HEMOGLOBIN 28.8 PG (27.0-31.0); MEAN CORPUSCULAR HGB CONC 33.6 g/dL (33.0-36.5); MEAN CORPUSCULAR VOLUME 85.6 FL (78-98); MEAN PLATELET VOLUME 8.2 FL (7.4-10.4); MONOCYTES # (AUTO) 0.3 X10'3 (0-0.9); MONOCYTES % (AUTO) 4.1 % (2-12); NEUTROPHILS # (AUTO) 7.6 X10'3 (1.8-7.7); NEUTROPHILS % (AUTO) 94.4 % (42-75); PLATELET COUNT 152 X10'3 (140-440); RED BLOOD COUNT 4.96 X10'6 (4.70-6.10); RED CELL DISTRIBUTION WIDTH 14.1 % (11.5-14.5); WHITE BLOOD COUNT 8.1 X10'3 (4.5-11.0)
[2021-08-28 03:51] LABS: ALBUMIN 2.3 G/DL (3.4-5.0); ANION GAP 2 (8-16); BLOOD UREA NITROGEN 29 MG/DL (7-18); BUN/CREATININE RATIO 40.8 (5.4-32.0); C-REACTIVE PROTEIN 0.38 MG/DL (0.0-0.5); CALCIUM 7.9 MG/DL (8.5-10.1); CHLORIDE 101 MMOL/L (99-107); CREATININE 0.71 MG/DL (0.60-1.10); GLUCOSE 422 MG/DL (70-104); MAGNESIUM 2.4 MG/DL (1.5-2.4); PHOSPHORUS 3.3 MG/DL (2.3-4.5); POTASSIUM 4.7 MMOL/L (3.5-5.1); SODIUM 130 MMOL/L (135-145); TOTAL CARBON DIOXIDE 27.4 MMOL/L (24-32); TRIGLYCERIDES 300 MG/DL (20-135); eGFR > 90 ML/MIN
[2021-08-28 03:56] LABS: PREALBUMIN 19.3 MG/DL (19-36)
--- NOTE | 2021-08-28 04:54 | NUR ---
Upon taking over care of pt, he was tachycardic (120's). Patient very was anxious. Several attempts were made to try and calm pt but was unsuccessful. Pt was offered Lorazepam to calm him and to decrease his HR (140's and 150's). Patient refused the lorazepam initially but later agreed to take it. Patient was also started on Precedex. Patient is responding well.
--- NOTE | 2021-08-28 06:07 | NUR ---
Report given to oncoming nurse SHARAD Johnson. plan of care was discussed and all questions and concerns where addressed.
[2021-08-28] MEDS: methylPREDNISolone sod succ 125mg/2ml vial IV SCH ×2 (07:57→23:47)
[2021-08-28] MEDS: pantoprazole 40MG/NS 100ML BAG 100 ML IV SCH (07:57)
[2021-08-28] MEDS: enoxaparin 60mg/0.6ml syringe SUBCUT SCH ×2 (07:57→21:18)
[2021-08-28] MEDS: K and/or MAG REPLACEMENT MC SCH ×2 (08:00→20:00)
[2021-08-28] MEDS: docusate sod 100mg capsule PO SCH ×2 (08:00→20:00)
[2021-08-28] MEDS: aspirin 81mg, enteric-coated 1 TAB TABLET.DR PO SCH (08:00)
[2021-08-28] MEDS: dextrose 5%-1/2 normal saline 1,000 ML IV SCH ×3 (09:13→22:45)
[2021-08-28] MEDS: multivitamins, therapeutics tablet PO SCH (11:48)
[2021-08-28] MEDS: zinc sulfate 220mg capsule PO SCH ×2 (13:00→21:00)
--- NOTE | 2021-08-28 15:28 | NUR ---
Wound care to bedside for skin assessment. The pt is sitting up in bed in no apparent acute distress with his daughter at the bedside. Greeted and explained intent. The pt refused to be assessed stating that he has finally become comfortable and does not want to be "moved around". Wound care will continue to monitor. [facility] charge nurse made aware of refusal. Addendum: 08/28/21 at 1535 by Beena Bennett RN Amended: Links added. Addendum: 08/28/21 at 1544 by Roshni Espitia RN -Reviewed by Roshni Espitia RN
[2021-08-28] MEDS: Insulin Reg/NS 100units/100mL 100 ML IV SCH (16:16)
[2021-08-28] MEDS ORDERED: dexmedetomidin/NS 400mcg/100ml 100 ML IV SCH (18:10)
[2021-08-28] MEDS: ZINC/COPPER/MANGANESE/SELENIUM 0.5 ML, chromic chloride inj. 5 MCG in AA 5%/CALCIUM/LYT... IV SCH (18:15)
[2021-08-28] MEDS: QUEtiapine 25mg tablet OGT SCH ×2 (21:00→21:18)
[2021-08-28] MEDS: insulin glargine (Lantus) pen - multi-dose SQ SCH (21:00)
[2021-08-29] VITALS (21 sets, daily range): BP systolic 99–160; BP diastolic 63–110
[2021-08-29] MEDS: cefepime 1GM/NS ADD-VANTAGE 100 ML IV SCH ×2 (00:47→08:50)
[2021-08-29] MEDS: insulin regular, human U-100 3ml vial - multi-dose SQ SCH ×2 (03:09→04:37)
[2021-08-29] MEDS: ZINC/COPPER/MANGANESE/SELENIUM 0.5 ML, chromic chloride inj. 5 MCG in AA 5%/CALCIUM/LYT... IV SCH ×2 (03:13→12:16)
[2021-08-29 03:39] LABS: C-REACTIVE PROTEIN 0.65 MG/DL (0.0-0.5); MAGNESIUM 2.3 MG/DL (1.5-2.4)
[2021-08-29] MEDS: linezolid 600mg/300ml PREMIX 300 ML IV SCH ×2 (04:13→16:47)
[2021-08-29] MEDS: K and/or MAG REPLACEMENT MC SCH ×2 (08:00→20:00)
[2021-08-29] MEDS ORDERED: QUEtiapine 25mg tablet PO ONE (08:30)
[2021-08-29] MEDS: methylPREDNISolone sod succ 125mg/2ml vial IV SCH ×2 (08:50→20:09)
[2021-08-29] MEDS: pantoprazole 40MG/NS 100ML BAG 100 ML IV SCH (08:50)
[2021-08-29] MEDS: enoxaparin 60mg/0.6ml syringe SUBCUT SCH (08:52)
[2021-08-29] MEDS: aspirin 81mg, enteric-coated 1 TAB TABLET.DR PO SCH (08:53)
[2021-08-29] MEDS: multivitamins, therapeutics tablet PO SCH (08:53)
[2021-08-29] MEDS: zinc sulfate 220mg capsule PO SCH ×3 (08:53→20:09)
[2021-08-29] MEDS: docusate sod 100mg capsule PO SCH ×2 (08:53→20:09)
[2021-08-29] MEDS: dexmedetomidine/D5W 100mL 100 ML IV SCH ×2 (08:54→16:48)
[2021-08-29] MEDS ORDERED: insulin glargine (Lantus) pen - multi-dose SQ ONE ×2 (09:05→21:00)
[2021-08-29] MEDS ORDERED: NPH, human insulin isophane inj. SQ SCH (09:05)
[2021-08-29] MEDS ORDERED: insulin regular, human U-100 3ml vial - multi-dose SQ ONE (09:15)
[2021-08-29 09:28] LABS: BASOPHILS % (AUTO) 0 % (0-1); EOSINOPHILS % (AUTO) 0 % (0-6); LYMPHOCYTES # (AUTO) 0.2 X10'3 (1.1-4.8); MEAN PLATELET VOLUME 8.8 FL (7.4-10.4); MONOCYTES # (AUTO) 0.7 X10'3 (0-0.9); MONOCYTES % (AUTO) 5.5 % (2-12); NEUTROPHILS # (AUTO) 11.1 X10'3 (1.8-7.7); NEUTROPHILS % (AUTO) 92.5 % (42-75); PLATELET COUNT 186 X10'3 (140-440)
[2021-08-29 09:38] LABS: D-DIMER 0.29 MG/L FEU (0-0.50)
[2021-08-29 09:47] LABS: HEMOGLOBIN 15.2 g/dl (14.0-17.9); RED BLOOD COUNT 5.18 X10'6 (4.70-6.10)
[2021-08-29 09:48] LABS: MEAN CORPUSCULAR HEMOGLOBIN 29.3 PG (27.0-31.0); MEAN CORPUSCULAR HGB CONC 34.5 g/dL (33.0-36.5); MEAN CORPUSCULAR VOLUME 84.9 FL (78-98)
--- NOTE | 2021-08-29 11:33 | NUR ---
F/u 08/29: Pt tolerating TPN at goal noted clear liquids diet active however documented as NPO. RD d/w RN regarding clarification as pt remains BIPAP dependent may need to be NPO per physician discretion. Pt Glu remains elevated 314-432mg/dl since last night w/ pt consistently refusing insulin and further RN care per RN this AM. TPN formula adjusted to minimize dex provision while still meeting estimated needs; RD collaborate w/ clinical pharmacist and notified RN of new goal rate. New TPN can start at goal given less dex loading. CMP pending this AM w/ Na 130 and TG 300 yesterday per EMR. LBM 08/28 receiving routine colace per EMR. Will monitor for updated labs, PN tolerance, and further nutrition intervention needs this admit. Recommendations: 1. Continuous TPN per MD via central access using 2:1 Clinimix-E 11/23 at 110mL/hr goal w/ separate 250mL 20% intralipids to run at 20.83 mL/hr for 12 hours /Wed. In total; to provide 2640mL volume/day, 132g AA, 396g dext (2.90mg/kg/min dext load), and avg 2017 kcal/day. Initiate at 110ml/hr goal given lower dex loading than prior PN infusion. 2. PALB/TG Q Wednesday/; Daily scaled weights 3. Continue clear liquids diet per MD; consider NPO given BIPAP dependence as medically indicated 4. Routine bowel care Addendum: 08/29/21 at [address] Amended: Links added.
[2021-08-29] MEDS: MVI, adult No.4 with vit. K 10 ML in dextrose 5% water 500ml 500 ML IV SCH ×4 (12:03→12:16)
[2021-08-29] MEDS: dextrose 5%-1/2 normal saline 1,000 ML IV SCH ×3 (12:05→18:45)
[2021-08-29] MEDS: cefepime 1GM in D5W 50mL 50 ML IV SCH (16:47)
[2021-08-29] MEDS ORDERED: insulin Lispro (HumaLOG) vial - multi-dose SQ SCH (19:50)
[2021-08-29] MEDS: QUEtiapine 25mg tablet OGT SCH (20:09)
[2021-08-29] MEDS: enoxaparin 40mg/0.4ml syringe SUBCUT SCH (20:09)
[2021-08-29] MEDS: insulin glargine (Lantus) pen - multi-dose SQ SCH (21:00)
[2021-08-29] MEDS ORDERED: ZINC/COPPER/MANGANESE/SELENIUM 1 ML, chromic chloride inj. 10 MCG in AA 5%/cal/electrol... IV SCH (21:00)
[2021-08-30] VITALS (16 sets, daily range): BP systolic 99–121; BP diastolic 63–87
[2021-08-30] MEDS: cefepime 1GM in D5W 50mL 50 ML IV SCH ×3 (00:07→17:22)
[2021-08-30] MEDS: dexmedetomidine/D5W 100mL 100 ML IV SCH ×5 (00:08→20:42)
[2021-08-30] MEDS: dextrose 5%-1/2 normal saline 1,000 ML IV SCH ×4 (01:25→21:25)
[2021-08-30] MEDS: insulin Lispro (HumaLOG) vial - multi-dose SQ SCH ×3 (03:33→21:42)
[2021-08-30] MEDS: linezolid 600mg/300ml PREMIX 300 ML IV SCH ×2 (04:48→17:22)
[2021-08-30 06:47] LABS: D-DIMER 0.38 MG/L FEU (0-0.50)
[2021-08-30 06:50] LABS: BASOPHILS % (AUTO) 0.1 % (0-1); EOSINOPHILS % (AUTO) 0.3 % (0-6); HEMATOCRIT 41.4 % (42.0-52.0); HEMOGLOBIN 13.8 g/dl (14.0-17.9); LYMPHOCYTES # (AUTO) 0.2 X10'3 (1.1-4.8); MEAN CORPUSCULAR HEMOGLOBIN 28.7 PG (27.0-31.0); MEAN CORPUSCULAR HGB CONC 33.4 g/dL (33.0-36.5); MEAN CORPUSCULAR VOLUME 85.9 FL (78-98); MEAN PLATELET VOLUME 9.3 FL (7.4-10.4); MONOCYTES # (AUTO) 0.4 X10'3 (0-0.9); MONOCYTES % (AUTO) 4.5 % (2-12); NEUTROPHILS # (AUTO) 7.9 X10'3 (1.8-7.7); NEUTROPHILS % (AUTO) 93.1 % (42-75); PLATELET COUNT 104 X10'3 (140-440); RED BLOOD COUNT 4.82 X10'6 (4.70-6.10); RED CELL DISTRIBUTION WIDTH 14.2 % (11.5-14.5); WHITE BLOOD COUNT 8.5 X10'3 (4.5-11.0)
[2021-08-30 07:12] LABS: ALANINE AMINOTRANSFERASE 22 U/L (12-78); ALBUMIN 2.2 G/DL (3.4-5.0); ALBUMIN/GLOBULIN RATIO 0.7 (1.1-1.5); ALKALINE PHOSPHATASE 90 IU/L (46-116); ANION GAP 10 (8-16); ASPARTATE AMINO TRANSFERASE 12 U/L (10-37); BILIRUBIN,TOTAL 1.1 MG/DL (0.1-1.0); BLOOD UREA NITROGEN 29 MG/DL (7-18); BUN/CREATININE RATIO 40.3 (5.4-32.0); C-REACTIVE PROTEIN 1.32 MG/DL (0.0-0.5); CALCIUM 8.4 MG/DL (8.5-10.1); CHLORIDE 100 MMOL/L (99-107); CREATININE 0.72 MG/DL (0.60-1.10); GLUCOSE 434 MG/DL (70-104); MAGNESIUM 2.1 MG/DL (1.5-2.4); POTASSIUM 4.9 MMOL/L (3.5-5.1); SODIUM 134 MMOL/L (135-145); TOTAL CARBON DIOXIDE 24.5 MMOL/L (24-32); TOTAL PROTEIN 5.2 G/DL (6.4-8.2); eGFR > 90 ML/MIN
[2021-08-30] MEDS ORDERED: insulin glargine (Lantus) pen - multi-dose SQ ONE (07:25)
[2021-08-30] MEDS ORDERED: QUEtiapine 25mg tablet PO PRN (07:55)
[2021-08-30] MEDS: K and/or MAG REPLACEMENT MC SCH ×2 (08:00→19:33)
[2021-08-30] MEDS: aspirin 81mg, enteric-coated 1 TAB TABLET.DR PO SCH (08:00)
[2021-08-30] MEDS: docusate sod 100mg capsule PO SCH ×2 (08:00→20:43)
[2021-08-30] MEDS: multivitamins, therapeutics tablet PO SCH (08:00)
[2021-08-30] MEDS: zinc sulfate 220mg capsule PO SCH ×3 (08:00→20:43)
[2021-08-30] MEDS: enoxaparin 40mg/0.4ml syringe SUBCUT SCH ×2 (08:55→20:43)
[2021-08-30] MEDS: pantoprazole 40MG/NS 100ML BAG 100 ML IV SCH (08:55)
[2021-08-30] MEDS: furosemide 20 MG/2 ML vial IV SCH ×2 (09:02→20:43)
[2021-08-30] MEDS: methylPREDNISolone sod succ 125mg/2ml vial IV SCH (09:41)
[2021-08-30] MEDS: ZINC/COPPER/MANGANESE/SELENIUM 0.5 ML, chromic chloride inj. 5 MCG in AA 5%/cal/electro... IV SCH (15:14)
[2021-08-30] MEDS: methylPREDNISolone sod succ/PF 40mg inj. IV SCH (20:42)
[2021-08-30] MEDS: QUEtiapine 25mg tablet OGT SCH ×2 (20:43→21:00)
--- NOTE | 2021-08-30 22:40 | NUR ---
Pt coded at 2209, Dr. Manzano from ED responded. Jessica called and was en route. Code called at 2249. Pt's arrived within a few minutes of pt being pronounced. [facility] called, Reference #[id number]. Addendum: 08/31/21 at 0134 by Jen Figueroa RN Entered in error. Wrong patient.
[2021-08-31] VITALS (24 sets, daily range): BP systolic 90–184; BP diastolic 55–95
[2021-08-31] MEDS: cefepime 1GM in D5W 50mL 50 ML IV SCH ×3 (00:32→14:54)
[2021-08-31] MEDS: ZINC/COPPER/MANGANESE/SELENIUM 0.5 ML, chromic chloride inj. 5 MCG in AA 5%/cal/electro... IV SCH ×3 (00:32→19:00)
[2021-08-31] MEDS: insulin glargine (Lantus) pen - multi-dose SQ SCH ×2 (01:23→21:23)
[2021-08-31] MEDS: insulin Lispro (HumaLOG) vial - multi-dose SQ SCH ×5 (03:12→21:22)
[2021-08-31 03:29] LABS: D-DIMER 0.66 MG/L FEU (0-0.50)
[2021-08-31 03:39] LABS: BASOPHILS % (AUTO) 0.1 % (0-1); EOSINOPHILS # (AUTO) 0.1 X10'3 (0-0.9); EOSINOPHILS % (AUTO) 0.8 % (0-6); HEMATOCRIT 41.3 % (42.0-52.0); HEMOGLOBIN 13.9 g/dl (14.0-17.9); LYMPHOCYTES # (AUTO) 0.1 X10'3 (1.1-4.8); LYMPHOCYTES % (AUTO) 1.7 % (21-51); MEAN CORPUSCULAR HEMOGLOBIN 28.7 PG (27.0-31.0); MEAN CORPUSCULAR HGB CONC 33.6 g/dL (33.0-36.5); MEAN CORPUSCULAR VOLUME 85.5 FL (78-98); MEAN PLATELET VOLUME 8.8 FL (7.4-10.4); MONOCYTES # (AUTO) 0.2 X10'3 (0-0.9); MONOCYTES % (AUTO) 2.6 % (2-12); NEUTROPHILS # (AUTO) 6.7 X10'3 (1.8-7.7); NEUTROPHILS % (AUTO) 94.8 % (42-75); PLATELET COUNT 99 X10'3 (140-440); RED BLOOD COUNT 4.82 X10'6 (4.70-6.10); RED CELL DISTRIBUTION WIDTH 14.3 % (11.5-14.5); WHITE BLOOD COUNT 7.1 X10'3 (4.5-11.0)
[2021-08-31] MEDS: linezolid 600mg/300ml PREMIX 300 ML IV SCH ×2 (03:39→15:39)
[2021-08-31 03:43] LABS: ALANINE AMINOTRANSFERASE 20 U/L (12-78); ALBUMIN 2.1 G/DL (3.4-5.0); ALBUMIN/GLOBULIN RATIO 0.8 (1.1-1.5); ALKALINE PHOSPHATASE 99 IU/L (46-116); ANION GAP 7 (8-16); ASPARTATE AMINO TRANSFERASE 23 U/L (10-37); BILIRUBIN,TOTAL 1.1 MG/DL (0.1-1.0); BLOOD UREA NITROGEN 28 MG/DL (7-18); BUN/CREATININE RATIO 53.8 (5.4-32.0); C-REACTIVE PROTEIN 12.15 MG/DL (0.0-0.5); CALCIUM 8.5 MG/DL (8.5-10.1); CHLORIDE 99 MMOL/L (99-107); CREATININE 0.52 MG/DL (0.60-1.10); GLUCOSE 262 MG/DL (70-104); MAGNESIUM 2.1 MG/DL (1.5-2.4); POTASSIUM 5.3 MMOL/L (3.5-5.1); SODIUM 136 MMOL/L (135-145); TOTAL PROTEIN 4.8 G/DL (6.4-8.2); eGFR > 90 ML/MIN
[2021-08-31] MEDS: dexmedetomidine/D5W 100mL 100 ML IV SCH ×6 (04:15→19:50)
--- NOTE | 2021-08-31 07:01 | NUR ---
Patient in room ICU 2043. I have received report from Mac RN and had the opportunity to ask questions and assume patient care.
[2021-08-31] MEDS: pantoprazole 40MG/NS 100ML BAG 100 ML IV SCH (07:15)
[2021-08-31] MEDS: K and/or MAG REPLACEMENT MC SCH ×2 (07:59→20:00)
[2021-08-31] MEDS: docusate sod 100mg capsule PO SCH ×2 (08:00→21:37)
[2021-08-31] MEDS: enoxaparin 40mg/0.4ml syringe SUBCUT SCH ×2 (08:00→21:38)
[2021-08-31] MEDS: multivitamins, therapeutics tablet PO SCH ×2 (08:00→08:04)
[2021-08-31] MEDS: aspirin 81mg, enteric-coated 1 TAB TABLET.DR PO SCH ×2 (08:00→08:04)
[2021-08-31] MEDS: zinc sulfate 220mg capsule PO SCH ×4 (08:00→21:00)
--- NOTE | 2021-08-31 08:00 | NUR ---
Patient anxious but refusing ativan, and xanax, states he is in no pain. Stated he will take half dose of seroquel, since it makes him sleepy. Informed pt that nurse will talk to MD to get order changed.
[2021-08-31] MEDS: furosemide 20 MG/2 ML vial IV SCH (08:04)
[2021-08-31] MEDS: methylPREDNISolone sod succ/PF 40mg inj. IV SCH ×2 (08:04→19:45)
--- NOTE | 2021-08-31 09:45 | NUR ---
Patient wanting to take seroquel, however, everytime med is tried to be given, pt states no I need a few more minutes to catch my breath, then states he will take it later. Have tried multiple times to try to give pt. Will attempt again.
[2021-08-31] MEDS: QUEtiapine 25mg tablet PO PRN ×2 (10:10→11:17)
[2021-08-31 11:14] LABS: ABG BASE EXCESS 0.9 mmol/L (-2.0-2.0); ABG HCO3 25.1 mmol/L (22.0-26.0); ABG OXYGEN SATURATION 84.6 % (94-97); ABG PCO2 (T) 38.9 mmHg (35.0-48.0); ABG PO2 (T) 46.4 mmHg (75.0-100.0); ALLEN'S TEST POSITIVE; FCOHb 0.8 % (0.0-3.9); FMetHb 0.2 % (0.0-1.5); FO2Hb 83.8 % (94-97); TOTAL HEMOGLOBIN 16.3 G/dl (14.0-18.0)
[2021-08-31] MEDS ORDERED: QUEtiapine 25mg tablet PO ONE (12:55)
[2021-08-31] MEDS: HYDROmorphone inj. 0.5 MG/0.5 ML DISP.SYRIN IV PRN ×2 (13:33→19:52)
--- NOTE | 2021-08-31 18:28 | NUR ---
Problems reprioritized. Patient report given, questions answered & plan of care reviewed with Ana Paula OROURKE.
--- NOTE | 2021-08-31 20:30 | NUR ---
Attempted to perform basic patient care, including linen and gown change, patient refuses at this time, Jennie (amanda) also at bedside at time of refusal.
[2021-08-31] MEDS ORDERED: QUEtiapine 25mg tablet OGT SCH (21:00)
--- NOTE | 2021-08-31 21:45 | NUR ---
Patient refused scheduled PO meds. Attempted to give scheduled medication over two hours. Patient states he could only take medication after having a sip of water, after several sips of water and breaks patient still reluctant to remove cpap long enough take PO medication.
[2021-09-01] VITALS (23 sets, daily range): BP systolic 93–143; BP diastolic 60–98
[2021-09-01] MEDS: cefepime 1GM in D5W 50mL 50 ML IV SCH ×2 (00:59→08:31)
--- NOTE | 2021-09-01 01:09 | NUR ---
CPAP reduced to [id number] at request of patient to "make it more comfortable" "its blowing hard" SpO2 went from 95% to 88%. CPAP placed back at [id number] with rise in SpO2 to 96%. Issues discussed with patient and setting left at 14. Addendum: 09/01/21 at 0114 by Crow Chaudhry RT Amended: Links added.
[2021-09-01] MEDS: dexmedetomidine/D5W 100mL 100 ML IV SCH ×7 (01:34→21:28)
[2021-09-01] MEDS: insulin Lispro (HumaLOG) vial - multi-dose SQ SCH ×3 (02:22→11:22)
[2021-09-01] MEDS: LORazepam 2 mg/ml vial IV PRN ×3 (02:28→17:44)
--- NOTE | 2021-09-01 03:00 | NUR ---
PRN ativan dose given per patient's requests. Patient states "Do I have anything else that will help me sleep" when give options patient states "I want something in my IV". Explained the only option available is Ativan, patient requested medication and stated he has never had adverse reactions to it. Observed resting with eyes closed, O2 sats remaining in high 90s.
[2021-09-01 03:25] LABS: BASOPHILS % (AUTO) 0.2 % (0-1); EOSINOPHILS % (AUTO) 0.1 % (0-6); HEMATOCRIT 42.4 % (42.0-52.0); HEMOGLOBIN 14.3 g/dl (14.0-17.9); LYMPHOCYTES # (AUTO) 0.1 X10'3 (1.1-4.8); MEAN CORPUSCULAR HEMOGLOBIN 28.8 PG (27.0-31.0); MEAN CORPUSCULAR HGB CONC 33.7 g/dL (33.0-36.5); MEAN CORPUSCULAR VOLUME 85.5 FL (78-98); MEAN PLATELET VOLUME 8.8 FL (7.4-10.4); MONOCYTES # (AUTO) 0.3 X10'3 (0-0.9); MONOCYTES % (AUTO) 3.7 % (2-12); NEUTROPHILS # (AUTO) 6.8 X10'3 (1.8-7.7); PLATELET COUNT 113 X10'3 (140-440); RED BLOOD COUNT 4.96 X10'6 (4.70-6.10); RED CELL DISTRIBUTION WIDTH 14.5 % (11.5-14.5); WHITE BLOOD COUNT 7.2 X10'3 (4.5-11.0)
[2021-09-01 03:26] LABS: D-DIMER 0.91 MG/L FEU (0-0.50)
[2021-09-01] MEDS: ZINC/COPPER/MANGANESE/SELENIUM 0.5 ML, chromic chloride inj. 5 MCG in AA 5%/cal/electro... IV SCH ×3 (04:00→22:29)
[2021-09-01 04:02] LABS: CHLORIDE 95 MMOL/L (99-107); GLUCOSE 178 MG/DL (70-104); POTASSIUM 5.1 MMOL/L (3.5-5.1); SODIUM 134 MMOL/L (135-145)
[2021-09-01 04:03] LABS: ALANINE AMINOTRANSFERASE 24 U/L (12-78); ALBUMIN 2.3 G/DL (3.4-5.0); ALBUMIN/GLOBULIN RATIO 0.7 (1.1-1.5); ALKALINE PHOSPHATASE 102 IU/L (46-116); ANION GAP 8 (8-16); ASPARTATE AMINO TRANSFERASE 20 U/L (10-37); BILIRUBIN,TOTAL 0.9 MG/DL (0.1-1.0); BLOOD UREA NITROGEN 29 MG/DL (7-18); BUN/CREATININE RATIO 56.9 (5.4-32.0); CALCIUM 8.9 MG/DL (8.5-10.1); CREATININE 0.51 MG/DL (0.60-1.10); MAGNESIUM 1.9 MG/DL (1.5-2.4); PHOSPHORUS 3.4 MG/DL (2.3-4.5); PREALBUMIN 17.9 MG/DL (19-36); TOTAL CARBON DIOXIDE 31.5 MMOL/L (24-32); TOTAL PROTEIN 5.5 G/DL (6.4-8.2); TRIGLYCERIDES 148 MG/DL (20-135); eGFR > 90 ML/MIN
[2021-09-01] MEDS: linezolid 600mg/300ml PREMIX 300 ML IV SCH (04:51)
[2021-09-01] MEDS: furosemide 20 MG/2 ML vial IV SCH ×2 (08:00→11:31)
[2021-09-01] MEDS: K and/or MAG REPLACEMENT MC SCH ×2 (08:00→18:58)
[2021-09-01] MEDS: multivitamins, therapeutics tablet PO SCH (08:00)
[2021-09-01] MEDS: aspirin 81mg, enteric-coated 1 TAB TABLET.DR PO SCH (08:00)
[2021-09-01] MEDS: docusate sod 100mg capsule PO SCH ×2 (08:00→19:04)
[2021-09-01] MEDS: pantoprazole 40MG/NS 100ML BAG 100 ML IV SCH (08:30)
[2021-09-01] MEDS: methylPREDNISolone sod succ/PF 40mg inj. IV SCH ×2 (08:31→19:48)
[2021-09-01] MEDS: enoxaparin 40mg/0.4ml syringe SUBCUT SCH ×2 (08:31→19:49)
--- NOTE | 2021-09-01 11:50 | NUR ---
F/u 09/01: Pt tolerating TPN at goal. Current diet order Clear liquids, RD d/w RN regarding pt PO tolerance, RN stated pt remains CPAP dependent and cannot even take water PO. Recommend NPO given CPAP dependence if MD agreeable. Pt Glu improved from previous level of 314-432mg/dl to 177-245 mg/dL w/ pt receiving insulin this AM though pt continues to refuse some PO medications per supervisor print line. Na 134 and TG 148 09/01 per EMR. LBM 08/29, receiving routine colace per EMR. Will monitor for PN tolerance, and further nutrition intervention needs this admit. Recommendations: 1. Continuous TPN per MD via central access using 2:1 Clinimix-E 11/23 at 110mL/hr goal w/ separate 250mL 20% intralipids to run at 20.83 mL/hr for 12 hours /Wed. In total; to provide 2640mL volume/day, 132g AA, 396g dext (2.90mg/kg/min dext load), and avg 2017 kcal/day. Initiate at 110ml/hr goal given lower dex loading than prior PN infusion. 2. PALB/TG Q Wednesday/; Daily scaled weights 3. Clear liquid diet per MD; consider NPO given CPAP dependence as medically indicated 4. Routine bowel care Addendum: 09/01/21 at 1151 by Peter Chauhan - Supervisor Packing Room RD Amended: Links added. Addendum: 09/01/21 at [address] I have reviewed assessment by editing intern
[2021-09-01] MEDS: insulin regular, human U-100 3ml vial - multi-dose SQ SCH ×2 (14:40→19:52)
--- NOTE | 2021-09-01 18:43 | NUR ---
Problems reprioritized. Patient report given, questions answered & plan of care reviewed with Homer OROURKE.
[2021-09-01] MEDS: HYDROmorphone inj. 0.5 MG/0.5 ML DISP.SYRIN IV PRN (20:20)
[2021-09-01] MEDS: insulin glargine (Lantus) pen - multi-dose SQ SCH (20:44)
[2021-09-02] VITALS (24 sets, daily range): BP systolic 95–154; BP diastolic 62–97
[2021-09-02] MEDS: dexmedetomidine/D5W 100mL 100 ML IV SCH ×7 (00:41→22:04)
[2021-09-02] MEDS: insulin regular, human U-100 3ml vial - multi-dose SQ SCH ×4 (02:35→21:41)
[2021-09-02 02:42] LABS: BASOPHILS % (AUTO) 0.3 % (0-1); EOSINOPHILS % (AUTO) 0.1 % (0-6); HEMATOCRIT 40.4 % (42.0-52.0); HEMOGLOBIN 13.5 g/dl (14.0-17.9); LYMPHOCYTES # (AUTO) 0.2 X10'3 (1.1-4.8); LYMPHOCYTES % (AUTO) 2.3 % (21-51); MEAN CORPUSCULAR HEMOGLOBIN 28.5 PG (27.0-31.0); MEAN CORPUSCULAR HGB CONC 33.5 g/dL (33.0-36.5); MEAN CORPUSCULAR VOLUME 85.2 FL (78-98); MEAN PLATELET VOLUME 8.2 FL (7.4-10.4); MONOCYTES # (AUTO) 0.3 X10'3 (0-0.9); MONOCYTES % (AUTO) 4.9 % (2-12); NEUTROPHILS # (AUTO) 6.1 X10'3 (1.8-7.7); NEUTROPHILS % (AUTO) 92.4 % (42-75); PLATELET COUNT 133 X10'3 (140-440); RED BLOOD COUNT 4.74 X10'6 (4.70-6.10); RED CELL DISTRIBUTION WIDTH 14.1 % (11.5-14.5); WHITE BLOOD COUNT 6.6 X10'3 (4.5-11.0)
[2021-09-02 02:58] LABS: D-DIMER 1.45 MG/L FEU (0-0.50)
[2021-09-02 03:10] LABS: ALANINE AMINOTRANSFERASE 27 U/L (12-78); ALBUMIN 2.1 G/DL (3.4-5.0); ALBUMIN/GLOBULIN RATIO 0.7 (1.1-1.5); ALKALINE PHOSPHATASE 95 IU/L (46-116); ANION GAP 4 (8-16); ASPARTATE AMINO TRANSFERASE 19 U/L (10-37); BILIRUBIN,TOTAL 0.8 MG/DL (0.1-1.0); BLOOD UREA NITROGEN 28 MG/DL (7-18); BUN/CREATININE RATIO 53.8 (5.4-32.0); CALCIUM 8.5 MG/DL (8.5-10.1); CHLORIDE 98 MMOL/L (99-107); CREATININE 0.52 MG/DL (0.60-1.10); GLUCOSE 187 MG/DL (70-104); SODIUM 135 MMOL/L (135-145); TOTAL CARBON DIOXIDE 32.7 MMOL/L (24-32); eGFR > 90 ML/MIN
[2021-09-02] MEDS: pantoprazole 40MG/NS 100ML BAG 100 ML IV SCH (07:01)
[2021-09-02] MEDS: furosemide 20 MG/2 ML vial IV SCH (07:02)
[2021-09-02] MEDS: enoxaparin 40mg/0.4ml syringe SUBCUT SCH ×2 (07:02→21:06)
[2021-09-02] MEDS: MVI, adult No.4 with vit. K 10 ML in dextrose 5% water 500ml 500 ML IV SCH ×2 (07:02)
[2021-09-02] MEDS: methylPREDNISolone sod succ/PF 40mg inj. IV SCH ×3 (07:03→21:06)
[2021-09-02] MEDS: K and/or MAG REPLACEMENT MC SCH ×2 (07:12→20:00)
[2021-09-02] MEDS: multivitamins, therapeutics tablet PO SCH (08:00)
[2021-09-02] MEDS: aspirin 81mg, enteric-coated 1 TAB TABLET.DR PO SCH (08:00)
[2021-09-02] MEDS: docusate sod 100mg capsule PO SCH ×2 (08:00→20:00)
[2021-09-02] MEDS: ZINC/COPPER/MANGANESE/SELENIUM 0.5 ML, chromic chloride inj. 5 MCG in AA 5%/cal/electro... IV SCH ×2 (08:36→17:55)
[2021-09-02] MEDS: LORazepam 2 mg/ml vial IV PRN ×2 (08:55→23:52)
[2021-09-02] MEDS: HYDROmorphone inj. 0.5 MG/0.5 ML DISP.SYRIN IV PRN ×3 (09:56→22:03)
--- NOTE | 2021-09-02 18:14 | NUR ---
Problems reprioritized. Patient report given, questions answered & plan of care reviewed with Frances OROURKE.
[2021-09-02] MEDS: insulin glargine (Lantus) pen - multi-dose SQ SCH (21:43)
[2021-09-03] VITALS (24 sets, daily range): BP systolic 91–160; BP diastolic 55–89
[2021-09-03] MEDS: dexmedetomidine/D5W 100mL 100 ML IV SCH ×7 (01:50→22:07)
[2021-09-03] MEDS: insulin regular, human U-100 3ml vial - multi-dose SQ SCH ×4 (02:36→20:04)
[2021-09-03 03:29] LABS: BASOPHILS % (AUTO) 0.3 % (0-1); EOSINOPHILS % (AUTO) 0.1 % (0-6); HEMATOCRIT 40.5 % (42.0-52.0); HEMOGLOBIN 13.7 g/dl (14.0-17.9); LYMPHOCYTES # (AUTO) 0.2 X10'3 (1.1-4.8); LYMPHOCYTES % (AUTO) 1.9 % (21-51); MEAN CORPUSCULAR HEMOGLOBIN 28.6 PG (27.0-31.0); MEAN CORPUSCULAR HGB CONC 33.8 g/dL (33.0-36.5); MEAN CORPUSCULAR VOLUME 84.5 FL (78-98); MEAN PLATELET VOLUME 8.3 FL (7.4-10.4); MONOCYTES # (AUTO) 0.5 X10'3 (0-0.9); MONOCYTES % (AUTO) 6.4 % (2-12); NEUTROPHILS # (AUTO) 7.6 X10'3 (1.8-7.7); NEUTROPHILS % (AUTO) 91.3 % (42-75); PLATELET COUNT 141 X10'3 (140-440); RED BLOOD COUNT 4.79 X10'6 (4.70-6.10); RED CELL DISTRIBUTION WIDTH 14.1 % (11.5-14.5); WHITE BLOOD COUNT 8.3 X10'3 (4.5-11.0)
[2021-09-03 03:37] LABS: D-DIMER 1.68 MG/L FEU (0-0.50)
[2021-09-03 04:04] LABS: ALANINE AMINOTRANSFERASE 56 U/L (12-78); ALBUMIN 2.2 G/DL (3.4-5.0); ALBUMIN/GLOBULIN RATIO 0.8 (1.1-1.5); ANION GAP 5 (8-16); ASPARTATE AMINO TRANSFERASE 30 U/L (10-37); BILIRUBIN,TOTAL 1.1 MG/DL (0.1-1.0); BLOOD UREA NITROGEN 26 MG/DL (7-18); C-REACTIVE PROTEIN 0.21 MG/DL (0.0-0.5); CALCIUM 8.7 MG/DL (8.5-10.1); CHLORIDE 97 MMOL/L (99-107); CREATININE 0.51 MG/DL (0.60-1.10); GLUCOSE 220 MG/DL (70-104); POTASSIUM 5.2 MMOL/L (3.5-5.1); SODIUM 137 MMOL/L (135-145); eGFR > 90 ML/MIN
[2021-09-03] MEDS: ZINC/COPPER/MANGANESE/SELENIUM 0.5 ML, chromic chloride inj. 5 MCG in AA 5%/cal/electro... IV SCH ×3 (04:24→22:07)
[2021-09-03] MEDS: HYDROmorphone inj. 0.5 MG/0.5 ML DISP.SYRIN IV PRN ×4 (06:18→22:07)
[2021-09-03] MEDS: docusate sod 100mg capsule PO SCH ×2 (08:00→19:02)
[2021-09-03] MEDS: K and/or MAG REPLACEMENT MC SCH ×2 (08:00→20:00)
[2021-09-03] MEDS: aspirin 81mg, enteric-coated 1 TAB TABLET.DR PO SCH (08:00)
[2021-09-03] MEDS: multivitamins, therapeutics tablet PO SCH (08:00)
[2021-09-03] MEDS: LORazepam 2 mg/ml vial IV PRN ×2 (08:11→19:10)
[2021-09-03] MEDS: methylPREDNISolone sod succ/PF 40mg inj. IV SCH ×2 (08:11→19:02)
[2021-09-03] MEDS: enoxaparin 40mg/0.4ml syringe SUBCUT SCH ×2 (08:11→19:01)
[2021-09-03] MEDS: pantoprazole 40MG/NS 100ML BAG 100 ML IV SCH (08:11)
[2021-09-03] MEDS: furosemide 20 MG/2 ML vial IV SCH (08:11)
[2021-09-03] MEDS: insulin glargine (Lantus) pen - multi-dose SQ SCH (20:03)
[2021-09-04] VITALS (24 sets, daily range): BP systolic 87–125; BP diastolic 55–92
[2021-09-04] MEDS: LORazepam 2 mg/ml vial IV PRN ×7 (00:21→23:21)
[2021-09-04] MEDS: dexmedetomidine/D5W 100mL 100 ML IV SCH ×6 (01:35→22:41)
[2021-09-04] MEDS: insulin regular, human U-100 3ml vial - multi-dose SQ SCH ×4 (02:17→20:09)
[2021-09-04 02:22] LABS: BASOPHILS # (AUTO) 0.1 X10'3 (0-0.2); BASOPHILS % (AUTO) 1.1 % (0-1); EOSINOPHILS % (AUTO) 0 % (0-6); HEMATOCRIT 40.6 % (42.0-52.0); HEMOGLOBIN 13.5 g/dl (14.0-17.9); LYMPHOCYTES # (AUTO) 0.3 X10'3 (1.1-4.8); LYMPHOCYTES % (AUTO) 4.1 % (21-51); MEAN CORPUSCULAR HEMOGLOBIN 28.4 PG (27.0-31.0); MEAN CORPUSCULAR HGB CONC 33.4 g/dL (33.0-36.5); MEAN CORPUSCULAR VOLUME 85.3 FL (78-98); MEAN PLATELET VOLUME 8.2 FL (7.4-10.4); MONOCYTES # (AUTO) 0.6 X10'3 (0-0.9); MONOCYTES % (AUTO) 8.1 % (2-12); NEUTROPHILS # (AUTO) 6.9 X10'3 (1.8-7.7); NEUTROPHILS % (AUTO) 86.7 % (42-75); PLATELET COUNT 140 X10'3 (140-440); RED BLOOD COUNT 4.76 X10'6 (4.70-6.10); RED CELL DISTRIBUTION WIDTH 14.1 % (11.5-14.5)
[2021-09-04 02:57] LABS: ANION GAP 5 (8-16); BLOOD UREA NITROGEN 29 MG/DL (7-18); BUN/CREATININE RATIO 60.4 (5.4-32.0); CHLORIDE 94 MMOL/L (99-107); CREATININE 0.48 MG/DL (0.60-1.10); GLUCOSE 250 MG/DL (70-104); SODIUM 132 MMOL/L (135-145); TOTAL CARBON DIOXIDE 33.4 MMOL/L (24-32)
[2021-09-04 02:58] LABS: ALANINE AMINOTRANSFERASE 124 U/L (12-78); ALBUMIN 2.2 G/DL (3.4-5.0); ALBUMIN/GLOBULIN RATIO 0.8 (1.1-1.5); ALKALINE PHOSPHATASE 119 IU/L (46-116); ASPARTATE AMINO TRANSFERASE 43 U/L (10-37); BILIRUBIN,TOTAL 1.1 MG/DL (0.1-1.0); CALCIUM 8.1 MG/DL (8.5-10.1); MAGNESIUM 1.9 MG/DL (1.5-2.4); PHOSPHORUS 3.5 MG/DL (2.3-4.5); PREALBUMIN 37.8 MG/DL (19-36); TOTAL PROTEIN 4.9 G/DL (6.4-8.2); TRIGLYCERIDES 190 MG/DL (20-135); eGFR > 90 ML/MIN
[2021-09-04] MEDS: HYDROmorphone inj. 0.5 MG/0.5 ML DISP.SYRIN IV PRN ×5 (03:53→21:26)
[2021-09-04 04:29] LABS: PLATELET ESTIMATE DECREASED; TOTAL CELLS COUNTED 100
--- NOTE | 2021-09-04 06:07 | NUR ---
Problems reprioritized. Patient report given, questions answered & plan of care reviewed with SHARAD Pearson.
[2021-09-04] MEDS: ZINC/COPPER/MANGANESE/SELENIUM 0.5 ML, chromic chloride inj. 5 MCG in AA 5%/cal/electro... IV SCH ×2 (07:32→17:02)
[2021-09-04] MEDS: docusate sod 100mg capsule PO SCH ×2 (08:00→18:35)
[2021-09-04] MEDS: aspirin 81mg, enteric-coated 1 TAB TABLET.DR PO SCH (08:00)
[2021-09-04] MEDS: K and/or MAG REPLACEMENT MC SCH (08:00)
[2021-09-04] MEDS: multivitamins, therapeutics tablet PO SCH (08:00)
[2021-09-04] MEDS: methylPREDNISolone sod succ/PF 40mg inj. IV SCH (09:04)
[2021-09-04] MEDS: enoxaparin 40mg/0.4ml syringe SUBCUT SCH ×2 (09:05→19:28)
[2021-09-04] MEDS: pantoprazole 40MG/NS 100ML BAG 100 ML IV SCH (09:05)
[2021-09-04] MEDS: furosemide 20 MG/2 ML vial IV SCH (09:05)
--- NOTE | 2021-09-04 11:33 | NUR ---
F/u 09/04: Pt remains BIPAP/CPAP dependent tolerating TPN at goal w/ PO diets cancelled as NPO except for meds per EMR. LBM 08/29 though no PO intake and colace held given NPO on BIPAP/CPAP per EMR. Serum Na 132 this AM receiving lasix w/ positive 3.1L fluid balance past 4 days per EMR. PALB 37.8 this AM up from 17.9 prior; likely impacted by steroids. Will continue to monitor for further nutrition intervention needs. Recommendations: 1. Continuous TPN per MD via central access using 2:1 Clinimix-E 11/23 at 110mL/hr goal w/ separate 250mL 20% intralipids to run at 20.83 mL/hr for 12 hours /Wed. In total; to provide 2640mL volume/day, 132g AA, 396g dext (2.90mg/kg/min dext load), and avg 2017 kcal/day. Initiate at 110ml/hr goal given lower dex loading than prior PN infusion. 2. PALB/TG Q Wednesday/; Daily scaled weights 3. Routine bowel care Addendum: 09/04/21 at [address] Amended: Links added.
[2021-09-04] MEDS: insulin glargine (Lantus) pen - multi-dose SQ SCH (20:07)
[2021-09-05] VITALS (23 sets, daily range): BP systolic 82–145; BP diastolic 52–95
[2021-09-05] MEDS: LORazepam 2 mg/ml vial IV PRN ×6 (01:09→22:28)
[2021-09-05] MEDS: HYDROmorphone inj. 0.5 MG/0.5 ML DISP.SYRIN IV PRN ×4 (01:09→23:27)
[2021-09-05] MEDS: ZINC/COPPER/MANGANESE/SELENIUM 0.5 ML, chromic chloride inj. 5 MCG in AA 5%/cal/electro... IV SCH ×3 (01:29→17:55)
[2021-09-05] MEDS: insulin regular, human U-100 3ml vial - multi-dose SQ SCH ×4 (01:31→19:50)
[2021-09-05 02:32] LABS: BASOPHILS % (AUTO) 0.4 % (0-1); EOSINOPHILS % (AUTO) 0.4 % (0-6); HEMATOCRIT 41.1 % (42.0-52.0); HEMOGLOBIN 13.9 g/dl (14.0-17.9); LYMPHOCYTES # (AUTO) 0.5 X10'3 (1.1-4.8); LYMPHOCYTES % (AUTO) 6.1 % (21-51); MEAN CORPUSCULAR HEMOGLOBIN 28.8 PG (27.0-31.0); MEAN CORPUSCULAR HGB CONC 33.7 g/dL (33.0-36.5); MEAN CORPUSCULAR VOLUME 85.5 FL (78-98); MEAN PLATELET VOLUME 8.3 FL (7.4-10.4); MONOCYTES # (AUTO) 0.6 X10'3 (0-0.9); MONOCYTES % (AUTO) 6.3 % (2-12); NEUTROPHILS # (AUTO) 7.7 X10'3 (1.8-7.7); NEUTROPHILS % (AUTO) 86.8 % (42-75); PLATELET COUNT 143 X10'3 (140-440); RED BLOOD COUNT 4.81 X10'6 (4.70-6.10); RED CELL DISTRIBUTION WIDTH 14.5 % (11.5-14.5); WHITE BLOOD COUNT 8.9 X10'3 (4.5-11.0)
[2021-09-05 02:43] LABS: D-DIMER 1.31 MG/L FEU (0-0.50)
[2021-09-05 02:59] LABS: ALBUMIN 2.2 G/DL (3.4-5.0); ANION GAP 4 (8-16); BILIRUBIN,TOTAL 1.4 MG/DL (0.1-1.0); BLOOD UREA NITROGEN 30 MG/DL (7-18); C-REACTIVE PROTEIN 0.09 MG/DL (0.0-0.5); CALCIUM 8.2 MG/DL (8.5-10.1); CHLORIDE 96 MMOL/L (99-107); GLUCOSE 82 MG/DL (70-104); POTASSIUM 4.5 MMOL/L (3.5-5.1); SODIUM 136 MMOL/L (135-145); TOTAL CARBON DIOXIDE 35.6 MMOL/L (24-32); TOTAL PROTEIN 4.9 G/DL (6.4-8.2); eGFR > 90 ML/MIN
[2021-09-05 03:00] LABS: ALANINE AMINOTRANSFERASE 175 U/L (12-78); ALBUMIN/GLOBULIN RATIO 0.8 (1.1-1.5); ALKALINE PHOSPHATASE 134 IU/L (46-116); ASPARTATE AMINO TRANSFERASE 63 U/L (10-37)
[2021-09-05] MEDS: dexmedetomidine/D5W 100mL 100 ML IV SCH ×7 (03:10→21:18)
--- NOTE | 2021-09-05 05:08 | NUR ---
Pt had a very restless night despite Anxiolytics, Dilaudid PRN, and Precedex drip. Pt is very non-compliant and works against himself. He is so anxious and restless and exacerbates it by attempting to talk over his mask . Pt has had to be redirected the entire night that his focus should be on breathing, not talking and writing, causing his oxygen saturation to drop to the low 80's. I am uncertain if pt family is aware of the severity of his condition and how his anxiety exacerbates his breathing. Based on my nursing judgement, family and interdisciplinary team needs to have a conversation with the patient regarding his goals. Pt constantly refuses to be turned, turns down wound care, and other evidenced based practices that have proven to lead to positive outcomes. With constant refusal, maybe the discussion needs to be had to explore more options such as hospice, where patient will be more comfortable at home, surrounded by family. His oxygen needs drastically increased from an FIO2 of 85-100%
--- NOTE | 2021-09-05 05:49 | NUR ---
Pt has had a sudden shift in his blood pressure. He is normally on the hypotensive side, however, his pressure is now reading 248/151. Several rechecks in the same arm show a higher reading. A full assessment was done on the patient, and no changes were noted from the initial assessment. Pt is oriented, though drowsy, and answers questions and follows commands. Blood pressure cuff was changed and readjusted, now patient's current blood pressure readings are 97/48 (61) and 96/63, which is more parallel with patients previous blood pressures throughout the night and overall appearance. Edwin Zuñiga RN
[2021-09-05] MEDS: K and/or MAG REPLACEMENT MC SCH ×3 (06:41→20:00)
[2021-09-05] MEDS: aspirin 81mg, enteric-coated 1 TAB TABLET.DR PO SCH (08:00)
[2021-09-05] MEDS: multivitamins, therapeutics tablet PO SCH (08:00)
[2021-09-05] MEDS: furosemide 20 MG/2 ML vial IV SCH (08:00)
[2021-09-05] MEDS: docusate sod 100mg capsule PO SCH ×2 (08:00→19:34)
[2021-09-05] MEDS: methylPREDNISolone sod succ/PF 40mg inj. IV SCH (08:20)
[2021-09-05] MEDS: pantoprazole 40MG/NS 100ML BAG 100 ML IV SCH (08:20)
[2021-09-05] MEDS: enoxaparin 40mg/0.4ml syringe SUBCUT SCH ×2 (08:21→19:34)
[2021-09-05] MEDS: MVI, adult No.4 with vit. K 10 ML in dextrose 5% water 500ml 500 ML IV SCH ×2 (08:24)
[2021-09-05] MEDS: insulin glargine (Lantus) pen - multi-dose SQ SCH (19:52)
[2021-09-06] VITALS (24 sets, daily range): BP systolic 94–160; BP diastolic 55–100
[2021-09-06] MEDS: dexmedetomidine/D5W 100mL 100 ML IV SCH ×9 (00:11→22:54)
[2021-09-06] MEDS: LORazepam 2 mg/ml vial IV PRN ×6 (01:27→21:28)
[2021-09-06] MEDS: insulin regular, human U-100 3ml vial - multi-dose SQ SCH ×4 (01:44→20:05)
[2021-09-06 02:53] LABS: D-DIMER 1.08 MG/L FEU (0-0.50)
--- NOTE | 2021-09-06 02:53 | NUR ---
Pt has been observed multiple times attempting to pop a valve off of his BPAP machine. This causes him to desaturate at a fast pace. He was just observed doing it again, however, this time he was successful. Valve was immediately replaced, however, pt had desaturated to 70. It took a minute to compensate. Oxygen saturation is currently 92% on CPAP, with FIO2 at 100%. Will discuss with charge nurse need for sitter, and possibly restraints. Edwin Zuñiga RN
[2021-09-06 02:56] LABS: BASOPHILS % (AUTO) 0.2 % (0-1); EOSINOPHILS # (AUTO) 0.1 X10'3 (0-0.9); EOSINOPHILS % (AUTO) 1.1 % (0-6); HEMATOCRIT 41.2 % (42.0-52.0); HEMOGLOBIN 13.7 g/dl (14.0-17.9); LYMPHOCYTES # (AUTO) 0.6 X10'3 (1.1-4.8); LYMPHOCYTES % (AUTO) 4.4 % (21-51); MEAN CORPUSCULAR HEMOGLOBIN 28.6 PG (27.0-31.0); MEAN CORPUSCULAR HGB CONC 33.2 g/dL (33.0-36.5); MEAN PLATELET VOLUME 8.2 FL (7.4-10.4); MONOCYTES # (AUTO) 0.5 X10'3 (0-0.9); MONOCYTES % (AUTO) 4.2 % (2-12); NEUTROPHILS # (AUTO) 11.7 X10'3 (1.8-7.7); NEUTROPHILS % (AUTO) 90.1 % (42-75); PLATELET COUNT 169 X10'3 (140-440); RED BLOOD COUNT 4.78 X10'6 (4.70-6.10); RED CELL DISTRIBUTION WIDTH 15.1 % (11.5-14.5); WHITE BLOOD COUNT 12.9 X10'3 (4.5-11.0)
[2021-09-06 03:06] LABS: ALBUMIN 2.4 G/DL (3.4-5.0); ALBUMIN/GLOBULIN RATIO 0.9 (1.1-1.5); ANION GAP 3 (8-16); ASPARTATE AMINO TRANSFERASE 60 U/L (10-37); BILIRUBIN,TOTAL 1.6 MG/DL (0.1-1.0); BLOOD UREA NITROGEN 29 MG/DL (7-18); C-REACTIVE PROTEIN 0.77 MG/DL (0.0-0.5); CHLORIDE 94 MMOL/L (99-107); GLUCOSE 226 MG/DL (70-104); POTASSIUM 5.1 MMOL/L (3.5-5.1); SODIUM 131 MMOL/L (135-145); TOTAL CARBON DIOXIDE 33.7 MMOL/L (24-32); TOTAL PROTEIN 5.1 G/DL (6.4-8.2); eGFR > 90 ML/MIN
[2021-09-06 03:07] LABS: ALANINE AMINOTRANSFERASE 179 U/L (12-78); ALKALINE PHOSPHATASE 153 IU/L (46-116)
[2021-09-06] MEDS: ZINC/COPPER/MANGANESE/SELENIUM 0.5 ML, chromic chloride inj. 5 MCG in AA 5%/cal/electro... IV SCH ×3 (03:09→20:04)
[2021-09-06] MEDS: HYDROmorphone inj. 0.5 MG/0.5 ML DISP.SYRIN IV PRN ×5 (03:33→21:28)
[2021-09-06 04:35] LABS: PLATELET ESTIMATE NORMAL; TOTAL CELLS COUNTED 100
[2021-09-06 04:36] LABS: LARGE PLATELETS FEW; POLYCHROMASIA FEW
--- NOTE | 2021-09-06 05:42 | NUR ---
Pt's night started off to a rough start. Pt's anxiety goes into overdrive when his family has to depart. He hyperventilates and sends himself into further distress. PRN's were given to help with symptoms. Pt then begin to relax. Anxiety got a bit better with prn Ativan given q2h per protocol. His anxiety would start back up as it got closer to being due. Pt has separation anxiety and does not want to be left alone by family or staff. This causes him to do things to get the nurse in the room. For instance, he will throw the clipboard on the floor. If that doesn't provoke someone to come in the room, he will result to popping the valve off of his CPAP machine. I have direct vision of the patient, yet he was unaware that I was observing him until I told him not to do that. When he thinks he is alone, he will start to reach for the valve again. Around 0330, while grabbing prn medications, he popped the valve off and when I entered the room, his sats had dropped down to the mid 70's. It took the patient a while to get his oxygen greater than 88%. Family was made aware of this assessment as well. He still continues to talk and do other things that he knows will drop his oxygen levels. He has to be redirected multiple times throughout the shift. Ativan and Dilaudid are having to be given around the clock as available to keep patient calm and oxygenation above 88%. Edwin Zuñiga RN
--- NOTE | 2021-09-06 06:30 | NUR ---
Received report from offgoing RN
[2021-09-06] MEDS: enoxaparin 40mg/0.4ml syringe SUBCUT SCH ×2 (07:37→20:03)
[2021-09-06] MEDS: furosemide 20 MG/2 ML vial IV SCH (07:37)
[2021-09-06] MEDS: pantoprazole 40MG/NS 100ML BAG 100 ML IV SCH (08:00)
[2021-09-06] MEDS: docusate sod 100mg capsule PO SCH ×2 (08:00→20:02)
[2021-09-06] MEDS: multivitamins, therapeutics tablet PO SCH (08:00)
[2021-09-06] MEDS: K and/or MAG REPLACEMENT MC SCH ×2 (08:00→20:00)
[2021-09-06] MEDS: methylPREDNISolone sod succ/PF 40mg inj. IV SCH (08:00)
[2021-09-06] MEDS: aspirin 81mg, enteric-coated 1 TAB TABLET.DR PO SCH (08:00)
--- NOTE | 2021-09-06 18:12 | NUR ---
Report given to RANDALL OROURKE
[2021-09-06] MEDS: insulin glargine (Lantus) pen - multi-dose SQ SCH (20:06)
--- NOTE | 2021-09-06 21:46 | NUR ---
Spoke with . Updated her on patient's current condition. Pt's anxiety is much better at the beginning of the shift today than previous days. He is communicating better and not reaching for his mask. He is also learning alternative ways to communicate in which he does not exhaust his energy and desaturate. Addendum: 09/06/21 at 2148 by Hilda Durham RN Edwin Zuñiga RN
[2021-09-07] VITALS (27 sets, daily range): BP systolic 87–142; BP diastolic 55–89
[2021-09-07] MEDS: LORazepam 2 mg/ml vial IV PRN ×4 (00:10→23:47)
[2021-09-07] MEDS: insulin regular, human U-100 3ml vial - multi-dose SQ SCH ×4 (02:11→20:23)
[2021-09-07] MEDS: HYDROmorphone inj. 0.5 MG/0.5 ML DISP.SYRIN IV PRN ×7 (02:18→23:47)
[2021-09-07] MEDS: dexmedetomidine/D5W 100mL 100 ML IV SCH ×7 (02:19→21:23)
[2021-09-07 02:47] LABS: BASOPHILS # (AUTO) 0.1 X10'3 (0-0.2); BASOPHILS % (AUTO) 0.5 % (0-1); EOSINOPHILS % (AUTO) 0.3 % (0-6); HEMATOCRIT 38.2 % (42.0-52.0); HEMOGLOBIN 12.1 g/dl (14.0-17.9); LYMPHOCYTES # (AUTO) 0.5 X10'3 (1.1-4.8); LYMPHOCYTES % (AUTO) 4.3 % (21-51); MEAN CORPUSCULAR HEMOGLOBIN 27.1 PG (27.0-31.0); MEAN CORPUSCULAR HGB CONC 31.8 g/dL (33.0-36.5); MEAN CORPUSCULAR VOLUME 85.5 FL (78-98); MEAN PLATELET VOLUME 7.8 FL (7.4-10.4); MONOCYTES # (AUTO) 0.4 X10'3 (0-0.9); MONOCYTES % (AUTO) 3.5 % (2-12); NEUTROPHILS # (AUTO) 9.7 X10'3 (1.8-7.7); NEUTROPHILS % (AUTO) 91.4 % (42-75); PLATELET COUNT 158 X10'3 (140-440); RED BLOOD COUNT 4.48 X10'6 (4.70-6.10); RED CELL DISTRIBUTION WIDTH 14.6 % (11.5-14.5); WHITE BLOOD COUNT 10.6 X10'3 (4.5-11.0)
[2021-09-07 03:15] LABS: D-DIMER 0.67 MG/L FEU (0-0.50)
[2021-09-07 03:33] LABS: ALANINE AMINOTRANSFERASE 133 U/L (12-78); ALBUMIN 2.2 G/DL (3.4-5.0); ALBUMIN/GLOBULIN RATIO 0.8 (1.1-1.5); ALKALINE PHOSPHATASE 144 IU/L (46-116); ANION GAP 2 (8-16); ASPARTATE AMINO TRANSFERASE 35 U/L (10-37); BILIRUBIN,TOTAL 1.2 MG/DL (0.1-1.0); BLOOD UREA NITROGEN 26 MG/DL (7-18); BUN/CREATININE RATIO 55.3 (5.4-32.0); C-REACTIVE PROTEIN 3.21 MG/DL (0.0-0.5); CALCIUM 7.8 MG/DL (8.5-10.1); CHLORIDE 93 MMOL/L (99-107); CREATININE 0.47 MG/DL (0.60-1.10); GLUCOSE 158 MG/DL (70-104); POTASSIUM 5.1 MMOL/L (3.5-5.1); SODIUM 131 MMOL/L (135-145); TOTAL CARBON DIOXIDE 35.9 MMOL/L (24-32); eGFR > 90 ML/MIN
[2021-09-07] MEDS: ZINC/COPPER/MANGANESE/SELENIUM 0.5 ML, chromic chloride inj. 5 MCG in AA 5%/cal/electro... IV SCH ×3 (05:11→23:40)
[2021-09-07] MEDS: docusate sod 100mg capsule PO SCH ×2 (07:06→20:00)
[2021-09-07] MEDS: aspirin 81mg, enteric-coated 1 TAB TABLET.DR PO SCH (07:06)
[2021-09-07] MEDS: multivitamins, therapeutics tablet PO SCH (07:06)
[2021-09-07] MEDS: pantoprazole 40MG/NS 100ML BAG 100 ML IV SCH (07:08)
[2021-09-07] MEDS: methylPREDNISolone sod succ/PF 40mg inj. IV SCH (07:09)
[2021-09-07] MEDS: furosemide 20 MG/2 ML vial IV SCH (07:09)
[2021-09-07] MEDS: enoxaparin 40mg/0.4ml syringe SUBCUT SCH ×2 (07:09→20:13)
[2021-09-07] MEDS: K and/or MAG REPLACEMENT MC SCH ×2 (08:00→20:00)
[2021-09-07] MEDS ORDERED: LORazepam 2 mg/ml vial ONE (08:24)
[2021-09-07] MEDS: insulin glargine (Lantus) pen - multi-dose SQ SCH (20:24)
[2021-09-08] VITALS (24 sets, daily range): BP systolic 98–151; BP diastolic 59–91
[2021-09-08] MEDS: dexmedetomidine/D5W 100mL 100 ML IV SCH ×9 (00:11→22:00)
[2021-09-08] MEDS: insulin regular, human U-100 3ml vial - multi-dose SQ SCH ×5 (02:16→19:55)
[2021-09-08 03:11] LABS: BASOPHILS % (AUTO) 0.1 % (0-1); EOSINOPHILS # (AUTO) 0.1 X10'3 (0-0.9); EOSINOPHILS % (AUTO) 0.4 % (0-6); HEMOGLOBIN 12.4 g/dl (14.0-17.9); LYMPHOCYTES # (AUTO) 0.4 X10'3 (1.1-4.8); LYMPHOCYTES % (AUTO) 2.9 % (21-51); MEAN CORPUSCULAR HEMOGLOBIN 28.7 PG (27.0-31.0); MEAN CORPUSCULAR HGB CONC 33.4 g/dL (33.0-36.5); MEAN CORPUSCULAR VOLUME 86.1 FL (78-98); MEAN PLATELET VOLUME 8.1 FL (7.4-10.4); MONOCYTES # (AUTO) 0.6 X10'3 (0-0.9); MONOCYTES % (AUTO) 3.8 % (2-12); NEUTROPHILS # (AUTO) 13.6 X10'3 (1.8-7.7); NEUTROPHILS % (AUTO) 92.8 % (42-75); PLATELET COUNT 195 X10'3 (140-440); RED CELL DISTRIBUTION WIDTH 14.8 % (11.5-14.5); WHITE BLOOD COUNT 14.6 X10'3 (4.5-11.0)
[2021-09-08 03:15] LABS: D-DIMER 0.64 MG/L FEU (0-0.50)
[2021-09-08] MEDS: HYDROmorphone inj. 0.5 MG/0.5 ML DISP.SYRIN IV PRN ×5 (03:39→23:19)
[2021-09-08] MEDS: LORazepam 2 mg/ml vial IV PRN ×2 (03:39→23:19)
[2021-09-08 03:41] LABS: ALANINE AMINOTRANSFERASE 107 U/L (12-78); ALBUMIN 2.3 G/DL (3.4-5.0); ALBUMIN/GLOBULIN RATIO 0.8 (1.1-1.5); ALKALINE PHOSPHATASE 155 IU/L (46-116); ANION GAP 1 (8-16); ASPARTATE AMINO TRANSFERASE 38 U/L (10-37); BILIRUBIN,TOTAL 1.2 MG/DL (0.1-1.0); BLOOD UREA NITROGEN 30 MG/DL (7-18); BUN/CREATININE RATIO 71.4 (5.4-32.0); C-REACTIVE PROTEIN 2.64 MG/DL (0.0-0.5); CALCIUM 7.9 MG/DL (8.5-10.1); CHLORIDE 91 MMOL/L (99-107); CREATININE 0.42 MG/DL (0.60-1.10); GLUCOSE 136 MG/DL (70-104); POTASSIUM 5.2 MMOL/L (3.5-5.1); PREALBUMIN 25.5 MG/DL (19-36); SODIUM 130 MMOL/L (135-145); TOTAL CARBON DIOXIDE 38.1 MMOL/L (24-32); TOTAL PROTEIN 5.2 G/DL (6.4-8.2); TRIGLYCERIDES 175 MG/DL (20-135); eGFR > 90 ML/MIN
--- NOTE | 2021-09-08 03:43 | NUR ---
Pt woke up out of his sleep very restless and anxious. Diversion interventions were done at bedside to no avail. Pt continued to talk over mask and even attemtped pulling mask off several times. This has exerted all pt's energy and dropped his sats in the low 70's. Pt was given Lorazepam and Dilaudid to help relax patient. Compensation took longer than usual, but pt's sats finally came up to 88% while on CPAP with FIO2 at 100%. Pt has done okay throughout the night, however, his anxiety has proven to be an issue time and time again. Will continue to try different interventions to help with anxiety on top of prn medications. Edwin Zuñiga RN
[2021-09-08] MEDS ORDERED: furosemide 20 MG/2 ML vial IV ONE (04:30)
[2021-09-08] MEDS: CALCIUM GLUC 1gm/50ml NACL,iso 50 ML IV SCH ×2 (04:41→05:56)
[2021-09-08] MEDS: K and/or MAG REPLACEMENT MC SCH ×2 (08:00→19:39)
[2021-09-08] MEDS: aspirin 81mg, enteric-coated 1 TAB TABLET.DR PO SCH (08:00)
[2021-09-08] MEDS: docusate sod 100mg capsule PO SCH ×2 (08:00→19:38)
[2021-09-08] MEDS: pantoprazole 40MG/NS 100ML BAG 100 ML IV SCH (08:32)
[2021-09-08] MEDS: furosemide 20 MG/2 ML vial IV SCH (08:33)
[2021-09-08] MEDS: enoxaparin 40mg/0.4ml syringe SUBCUT SCH ×2 (08:33→19:37)
[2021-09-08] MEDS: methylPREDNISolone sod succ/PF 40mg inj. IV SCH (08:33)
[2021-09-08] MEDS: ZINC/COPPER/MANGANESE/SELENIUM 0.5 ML, chromic chloride inj. 5 MCG in AA 5%/cal/electro... IV SCH ×3 (08:41→19:37)
--- NOTE | 2021-09-08 11:14 | NUR ---
F/u 09/08: Pt remains CPAP dependent tolerating TPN at goal w/ PO diets cancelled as NPO except for meds per EMR. LBM 08/29 though no PO intake and colace held given NPO on CPAP per EMR. Serum Na 130 this AM receiving lasix w/ negative 4.6L fluid balance past 3 days per EMR. No change to recommendations at this time Will continue to monitor for further nutrition intervention needs. Recommendations: 1. Continuous TPN per MD via central access using 2:1 Clinimix-E 11/23 at 110mL/hr goal w/ separate 250mL 20% intralipids to run at 20.83 mL/hr for 12 hours /Wed. In total; to provide 2640mL volume/day, 132g AA, 396g dext (2.90mg/kg/min dext load), and avg 2017 kcal/day. Initiate at 110ml/hr goal given lower dex loading than prior PN infusion. 2. PALB/TG Q Wednesday/; Daily scaled weights 3. Routine bowel care Addendum: 09/08/21 at [address] Amended: Links added.
--- NOTE | 2021-09-08 12:21 | NUR ---
TC from Pharmacist stating we will be out of current TPN formula, will be using Clinimix E 02/22 at this time. See updated recs below. Recommendations: 1. Continuous TPN per MD via central access using 2:1 Clinimix-E 02/22 at 83mL/hr goal w/ separate 250mL 20% intralipids to run at 20.83 mL/hr for 12 hours /Wed. In total; to provide 1992mL volume/day, 159g AA, 279g dext (2.04mg/kg/min GIR), and avg 1727 kcal/day. 2. PALB/TG Q Wednesday/; Daily scaled weights 3. Routine bowel care Addendum: 09/08/21 at [address] Amended: Links added.
[2021-09-08] MEDS: micafungin inj 100 MG in normal saline 100ml IV soln 100 ML IV SCH (12:40)
[2021-09-08] MEDS ORDERED: VANCOmycin 2,000MG in NS 500ml IV soln IV ONE (13:00)
[2021-09-08 14:56] LABS: MAGNESIUM 1.9 MG/DL (1.5-2.4)
[2021-09-08] MEDS: cefepime 1GM/NS ADD-VANTAGE 100 ML IV SCH ×2 (16:10→23:24)
[2021-09-08] MEDS: insulin glargine (Lantus) pen - multi-dose SQ SCH (19:56)
[2021-09-09] VITALS (9 sets, daily range): BP systolic 112–142; BP diastolic 73–91
[2021-09-09] MEDS ORDERED: NORMAL SALINE IV SCH (01:00)
[2021-09-09] MEDS ORDERED: VANCOMYCIN IV SCH (01:00)
[2021-09-09] MEDS: dexmedetomidine/D5W 100mL 100 ML IV SCH ×3 (01:15→07:17)
[2021-09-09] MEDS: insulin regular, human U-100 3ml vial - multi-dose SQ SCH (02:19)
[2021-09-09 03:01] LABS: BASOPHILS # (AUTO) 0.1 X10'3 (0-0.2); EOSINOPHILS % (AUTO) 0.1 % (0-6); HEMATOCRIT 35.7 % (42.0-52.0); HEMOGLOBIN 11.9 g/dl (14.0-17.9); LYMPHOCYTES # (AUTO) 0.3 X10'3 (1.1-4.8); LYMPHOCYTES % (AUTO) 1.8 % (21-51); MEAN CORPUSCULAR HEMOGLOBIN 28.6 PG (27.0-31.0); MEAN CORPUSCULAR HGB CONC 33.5 g/dL (33.0-36.5); MEAN CORPUSCULAR VOLUME 85.5 FL (78-98); MONOCYTES # (AUTO) 0.4 X10'3 (0-0.9); MONOCYTES % (AUTO) 2.6 % (2-12); NEUTROPHILS # (AUTO) 13.9 X10'3 (1.8-7.7); NEUTROPHILS % (AUTO) 94.5 % (42-75); PLATELET COUNT 190 X10'3 (140-440); RED BLOOD COUNT 4.17 X10'6 (4.70-6.10); RED CELL DISTRIBUTION WIDTH 14.6 % (11.5-14.5); WHITE BLOOD COUNT 14.8 X10'3 (4.5-11.0)
[2021-09-09 03:17] LABS: D-DIMER 0.97 MG/L FEU (0-0.50)
[2021-09-09 03:23] LABS: ALANINE AMINOTRANSFERASE 181 U/L (12-78); ALBUMIN 2.2 G/DL (3.4-5.0); ALBUMIN/GLOBULIN RATIO 0.7 (1.1-1.5); ALKALINE PHOSPHATASE 191 IU/L (46-116); ANION GAP 1 (8-16); ASPARTATE AMINO TRANSFERASE 60 U/L (10-37); BILIRUBIN,TOTAL 1.6 MG/DL (0.1-1.0); BLOOD UREA NITROGEN 28 MG/DL (7-18); BUN/CREATININE RATIO 63.6 (5.4-32.0); C-REACTIVE PROTEIN 5.14 MG/DL (0.0-0.5); CALCIUM 8.2 MG/DL (8.5-10.1); CHLORIDE 89 MMOL/L (99-107); CREATININE 0.44 MG/DL (0.60-1.10); GLUCOSE 191 MG/DL (70-104); POTASSIUM 5.1 MMOL/L (3.5-5.1); SODIUM 129 MMOL/L (135-145); TOTAL CARBON DIOXIDE 39.5 MMOL/L (24-32); TOTAL PROTEIN 5.2 G/DL (6.4-8.2); eGFR > 90 ML/MIN
[2021-09-09] MEDS: ZINC/COPPER/MANGANESE/SELENIUM 0.5 ML, chromic chloride inj. 5 MCG in AA 5%/cal/electro... IV SCH (04:07)
--- NOTE | 2021-09-09 05:28 | NUR ---
pt had a restless night. On top of his labored breathing, pt is also very agitated. He only received Dilaudid and Ativan once per his request. Pt has taken his mask off multiple times. He has also thrown his call light and phone on the floor. He continues to talk over his mask, further adding to his respiratory distress. a few times, he has pulled at his mask and told staff "I is ready to . Call my family and tell them I am ready to ." Pt even had to have a sitter at one point throughout the night due to him pulling at equipment. Edwin Zuñiga RN
[2021-09-09] MEDS: HYDROmorphone inj. 0.5 MG/0.5 ML DISP.SYRIN IV PRN (06:58)
[2021-09-09] MEDS: aspirin 81mg, enteric-coated 1 TAB TABLET.DR PO SCH (07:20)
[2021-09-09] MEDS: docusate sod 100mg capsule PO SCH (07:20)
[2021-09-09] MEDS: pantoprazole 40MG/NS 100ML BAG 100 ML IV SCH (07:26)
[2021-09-09] MEDS: micafungin inj 100 MG in normal saline 100ml IV soln 100 ML IV SCH (07:26)
[2021-09-09] MEDS: cefepime 1GM/NS ADD-VANTAGE 100 ML IV SCH (07:26)
[2021-09-09] MEDS: furosemide 20 MG/2 ML vial IV SCH (07:27)
[2021-09-09] MEDS: enoxaparin 40mg/0.4ml syringe SUBCUT SCH (07:27)
[2021-09-09] MEDS ORDERED: methylPREDNISolone sod succ/PF 40mg inj. IV SCH (08:00)
[2021-09-09] MEDS ORDERED: LORazepam 2 mg/ml vial IV PRN (08:15)
[2021-09-09] MEDS ORDERED: morphine 10mg/ml inj. IV PRN (08:25)
[2021-09-09] MEDS ORDERED: HYDROmorphone inj. 0.5 MG/0.5 ML DISP.SYRIN IV PRN (08:55)
--- NOTE | 2021-09-09 09:04 | NUR ---
RN IS TO DOCUMENT YES TO ALL APPLICABLE AREAS Pronouncement of : Dr. Ken 1. Time Physician Notified: 09:04 2. Date of : 09/09/2021 3. Time of : 09:04 4. DNR/Withdraw life support documented: Yes 5. Monitor strip has been placed on chart: Yes 6. Assessment process is of one-minute duration and includes following criteria: a) Patient is unresponsive to all stimuli: Yes b) Pupils fixed and non-reactive: Yes c) Auscultation of precordium reveals absence of heart tones: Yes d) Auscultation of lungs reveals absence of breath sounds: Yes e) Absence of blood pressure / all vital signs: Yes f) QRS complexes are not present on monitor / EKG strip: Yes g) Pacer spikes without capture: N/A 4. Comments: Two RN confirmation of heart and lung sounds after .
--- NOTE | 2021-09-09 09:27 | NUR ---
Came into shift this morning with patient extremely restless, rapidly breathing 34/min at 6 am. Patient stated he was in pain 5/10, dose of 1 mg Dilaudid given for pain at 0658. Patient was asked appropriate orientation questions, and knew why he was here, his name, date of . Patient stated "Take off the mask." Patient was notified that if the mask is taken off there is a strong chance he will . Patient stated "Let me ." Patient stated this to myself, Dr. Ken, then to his and daughter after repeated attempts by daughter to take over his medical decisions as his POA. Daughter was talking to social media marketing analyst in room about how her father is not himself and not appropriate to make medical decisions despite him still stating "I want to " and appropriately oriented. Daughter exploring ways with social media marketing analyst on how to be his legal decision maker despite this. Dr. Ken put in comfort care orders for CPAP mask to be taken off per patient's wishes. Mask taken off by Dr. Ken after orders placed, daughter became belligerent and had to be carried out by security. Time of 0904 am. notified. Attempted to call 3 times.
[2021-09-09] MEDS ORDERED: ZINC IV SCH (11:00)
[2021-09-09] MEDS ORDERED: [UNRECOGNIZED DRUG - OTHER] IV SCH (11:00)
[2021-09-09] MEDS ORDERED: SELENIUM IV SCH (11:00)
[2021-09-09] MEDS ORDERED: MANGANESE IV SCH (11:00)
[2021-09-09] MEDS ORDERED: COPPER IV SCH (11:00)
[2021-09-09] MEDS ORDERED: CHROMIC CHLORIDE IV SCH (11:00)
[2021-09-10] MEDS ORDERED: VANCOMYCIN LEVEL IV ONE (00:30)
== END 2021-09-09 09:04 | DRG 871 ==
LOC: ER 14:51 → ED HOLD 15:06 → ORTHO 4S 15:17 → CICU 2S 08-25 15:25 → ICU 2S 08-29 05:21
PROVIDERS: ADMIT Family Medicine; ATTEND Internal Medicine Critical Care Medicine
PROC: 5A0945A Assistance with Respiratory Ventilation, 24-96 Consecutive Hours, High Flow/Velocity Cannula (ICD-10-PCS; 2021-08-11)
PROC: XW033H5 Introduction of Tocilizumab into Peripheral Vein, Percutaneous Approach, New Technology Group 5 (ICD-10-PCS; principal; 2021-08-12)
PROC: 5A0935A Assistance with Respiratory Ventilation, Less than 24 Consecutive Hours, High Flow/Velocity Cannula (ICD-10-PCS; 2021-08-13)
PROC: 5A0935A Assistance with Respiratory Ventilation, Less than 24 Consecutive Hours, High Flow/Velocity Cannula (ICD-10-PCS; 2021-08-14)
PROC: 5A0935A Assistance with Respiratory Ventilation, Less than 24 Consecutive Hours, High Flow/Velocity Cannula (ICD-10-PCS; 2021-08-15)
PROC: 5A0935A Assistance with Respiratory Ventilation, Less than 24 Consecutive Hours, High Flow/Velocity Cannula (ICD-10-PCS; 2021-08-16)
PROC: 5A0935A Assistance with Respiratory Ventilation, Less than 24 Consecutive Hours, High Flow/Velocity Cannula (ICD-10-PCS; 2021-08-17)
PROC: 5A0935A Assistance with Respiratory Ventilation, Less than 24 Consecutive Hours, High Flow/Velocity Cannula (ICD-10-PCS; 2021-08-18)
PROC: 5A0935A Assistance with Respiratory Ventilation, Less than 24 Consecutive Hours, High Flow/Velocity Cannula (ICD-10-PCS; 2021-08-19)
PROC: 5A0935A Assistance with Respiratory Ventilation, Less than 24 Consecutive Hours, High Flow/Velocity Cannula (ICD-10-PCS; 2021-08-20)
PROC: 5A0945A Assistance with Respiratory Ventilation, 24-96 Consecutive Hours, High Flow/Velocity Cannula (ICD-10-PCS; 2021-08-21)
PROC: 5A09457 Assistance with Respiratory Ventilation, 24-96 Consecutive Hours, Continuous Positive Airway Pressure (ICD-10-PCS; 2021-08-25)
PROC: 5A09557 Assistance with Respiratory Ventilation, Greater than 96 Consecutive Hours, Continuous Positive Airway Pressure (ICD-10-PCS; 2021-08-27)
PROC: 5A0935A Assistance with Respiratory Ventilation, Less than 24 Consecutive Hours, High Flow/Velocity Cannula (ICD-10-PCS; 2021-08-27)
PROC: 02HV33Z Insertion of Infusion Device into Superior Vena Cava, Percutaneous Approach (ICD-10-PCS; 2021-08-27)
PROC: B548ZZA Ultrasonography of Superior Vena Cava, Guidance (ICD-10-PCS; 2021-08-27)
DX: A41.89 Other specified sepsis (principal); I50.33 Acute on chronic diastolic (congestive) heart failure; J12.82 Pneumonia due to coronavirus disease 2019; J80 Acute respiratory distress syndrome; R65.21 Severe sepsis with septic shock; U07.1 COVID-19; E87.1 Hypo-osmolality and hyponatremia; E87.3 Alkalosis; N17.9 Acute kidney failure, unspecified; R71.0 Precipitous drop in hematocrit; D72.810 Lymphocytopenia; E11.65 Type 2 diabetes mellitus with hyperglycemia; E66.9 Obesity, unspecified; D75.1 Secondary polycythemia; D72.819 Decreased white blood cell count, unspecified; E78.5 Hyperlipidemia, unspecified; J20.9 Acute bronchitis, unspecified; Z66 Do not resuscitate; F32.A Depression, unspecified; G89.29 Other chronic pain; F41.9 Anxiety disorder, unspecified; I25.10 Atherosclerotic heart disease of native coronary artery without angina pectoris; I25.2 Old myocardial infarction; Z79.01 Long term (current) use of anticoagulants; Z79.4 Long term (current) use of insulin; Z91.14 Patient's other noncompliance with medication regimen; Z95.5 Presence of coronary angioplasty implant and graft; Z68.30 Body mass index [BMI] 30.0-30.9, adult
CPT/HCPCS: 36415; 36569; 36600; 71045; 76942; 80048; 80053; 80061; 82803; 82948; 83036; 83605; 83735; 83880; 84100; 84134; 84145; 84478; 84484; 84560; 85007; 85018; 85025; 85379; 86140; 86703; 87040; 87077; 87081; 87186; 87635; 93005; 93306; 93970; 94660; 94760; 94799; 96365; 96375; 97110; 97116; 97161; 97530; 99285; C9113; C9803; G0378; J0610; J0692; J0696; J1100; J1170; J1650; J1815; J1940; J2020; J2060; J2248; J2274; J2405; J2920; J2930; J3262; J3370; J3490; J7030; J7040; J7042; J7050; J7060; J7120; P9045; Q9967